=== PATIENT | female | born 1980 | race Hispanic/Latino ===

== ENCOUNTER 2017-04-12 20:51 | Inpatient (IN) | payer MEDICARE, OTHER ==
[~2017-04-12 20:51] MED LIST: ISOVUE-370 76%-LOCM 1 ML ONE
--- NOTE | 2017-04-12 21:18 | RAD ---
CHEST ONE VIEW 04/12/17 HISTORY: Dyspnea. COMPARISON: 04/07/16. FINDINGS: The cardiac silhouette is magnified and enlarged. Pulmonary vasculature is more engorged with reticul onodular interstitial prominence and bilateral perihilar and bibasilar infiltrates. Mediastinum is mi dline with a multilead left subclavian cardiac electronic device. No lobar consolidation or evidence of pneumothorax. IMPRESSION: CHF. POS: [facility]
[2017-04-12 21:34] LABS: #Basophils 0.1 thou/uL (0.0-0.2); #Eosinphils 0.2 thou/uL (0.0-0.7); #Lymphocytes 2.7 thou/uL (1.20-3.40); #Monocytes 0.7 thou/uL (0.11-0.59); #Neutrophils 7.7 thou/uL (1.40-6.50); %Basophils 0.7 % (0.0-1.0); %Eosinophils 2.1 % (0.0-10.0); %Monocytes 6.1 % (0.0-10.0); %Neutrophils 67.1 % (42.0-75.0); Hemoglobin 15.4 g/dL (12.0-16.0); Mean Corpuscular HGB CONC 34.1 g/dL (32.0-36.0); Mean Corpuscular Hemoglobin 33.5 pg (27.0-31.0); Mean Corpuscular Volume 98.1 fl (81.0-99.0); Mean Platelet Volume 8.2 fL (7.4-10.4); Platelet Count 232 thou/uL (130-400); RBC Distribution Width 12.6 % (11.5-14.5); Red Blood Cell (RBC) Count 4.58 mill/uL (4.20-5.40); White Blood Cell (WBC) Count 11.4 thou/uL (4.8-10.8)
[2017-04-12 21:57] LABS: ALT (SGPT) 29 U/L (8-55); AST (SGOT) 21 U/L (5-34); Albumin 4.2 g/dL (3.5-5.0); Alkaline Phosphatase 77 U/L (40-150); Anion Gap 13 mmol/L (10-20); BUN (Urea Nitrogen) 9 mg/dL (7.0-18.7); Bilirubin, Total 0.4 mg/dL (0.2-1.2); Calc. Creatinine Clearance 0 mL/min (70-130); Calcium 9.4 mg/dL (7.8-10.44); Carbon Dioxide 23 mmol/L (22-29); Chloride 105 mmol/L (98-107); Estimated GFR-MDRD 81; Globulin 3.2 g/dL (2.4-3.5); Glucose 108 mg/dL (70-105); Potassium 3.6 mmol/L (3.5-5.1); Protein, Total 7.4 g/dL (6.0-8.3); Sodium 137 mmol/L (136-145)
[2017-04-12 21:59] LABS: CKMB 2.6 ng/mL (0-6.6); Troponin I 0.014 ng/mL (< 0.028)
--- NOTE | 2017-04-12 23:01 | CT ---
CT ARTERIOGRAM CHEST WITH IV CONTRAST AND 3D MIP IMAGING 04/12/17 Performed on an emergency basis at 2246 hours. HISTORY: Chest pain. Dyspnea. COMPARISON: 04/03/16. FINDINGS: There is good contrast opacification of the pulmonary arteries. Contrast has not yet reached the thor acic aorta. There is bovine origin of the great vessels from the aortic arch. Minimal bilateral pleural fluid. Scattered mild ground glass parenchymal opacity is less pronounced t puente on the prior study. No evidence of mediastinal adenopathy. IMPRESSION: 1. No CT evidence of pulmonary embolus. 2. Wide spread mild ground glass opacity may reflect bilateral pneumonitis. It is less pronounce d than on the exam from last year. POS: [facility]
[2017-04-12] MEDS ORDERED: Furosemide 20 MG/2 ML VIAL ONE (23:33)
[2017-04-12] MEDS ORDERED: Nitroglycerin 2% Ointment 1 INCH/1 GM Packet ONE (23:33)
[2017-04-13 03:08] VITALS: BMI 42.0
[2017-04-13] MEDS ORDERED: Dextrose 5% in Water 1,000 ML IV PRN (09:22)
[2017-04-13] MEDS ORDERED: Acetaminophen 325 MG TAB PO PRN (09:22)
[2017-04-13] MEDS ORDERED: Ondansetron ODT 4 MG TAB PO PRN (09:22)
[2017-04-13] MEDS ORDERED: Insulin Regular 300 UNITS/3 ML VIAL SC PRN (09:22)
[2017-04-13] MEDS ORDERED: Enoxaparin Sodium 40 MG/0.4 ML SYRINGE SC SCH ×2 (09:22→09:45)
[2017-04-13] MEDS ORDERED: Dextrose 50% Abboject 50 ML SYRINGE SLOW IVP PRN (09:22)
[2017-04-13] MEDS ORDERED: Famotidine 20 MG TAB PO SCH ×2 (09:22→09:45)
[2017-04-13] MEDS ORDERED: HYDROcodone/Acetaminophen 5/325 mg Tablet PO PRN (09:22)
[2017-04-13 10:12] LABS: #Eosinphils 0.1 thou/uL (0.0-0.7); #Lymphocytes 1.9 thou/uL (1.20-3.40); #Monocytes 0.7 thou/uL (0.11-0.59); #Neutrophils 6.3 thou/uL (1.40-6.50); %Eosinophils 1.5 % (0.0-10.0); %Lymphocytes 20.7 % (21.0-51.0); %Monocytes 7.7 % (0.0-10.0); %Neutrophils 70.1 % (42.0-75.0); Hemoglobin 14.5 g/dL (12.0-16.0); Mean Corpuscular Hemoglobin 33.2 pg (27.0-31.0); Mean Platelet Volume 8.1 fL (7.4-10.4); Platelet Count 209 thou/uL (130-400); RBC Distribution Width 12.6 % (11.5-14.5); Red Blood Cell (RBC) Count 4.38 mill/uL (4.20-5.40); White Blood Cell (WBC) Count 8.9 thou/uL (4.8-10.8)
[2017-04-13] MEDS: Furosemide 40 MG/4 ML VIAL SLOW IVP SCH ×3 (10:14→23:13)
[2017-04-13 10:27] LABS: CKMB 2.2 ng/mL (0-6.6); Troponin I 0.024 ng/mL (< 0.028)
[2017-04-13 10:29] LABS: Anion Gap 11 mmol/L (10-20); BUN (Urea Nitrogen) 9 mg/dL (7.0-18.7); Calc. Creatinine Clearance 180 mL/min (70-130); Calcium 9.5 mg/dL (7.8-10.44); Carbon Dioxide 25 mmol/L (22-29); Chloride 103 mmol/L (98-107); Estimated GFR-MDRD 85; Glucose 120 mg/dL (70-105); Potassium 3.6 mmol/L (3.5-5.1); Sodium 135 mmol/L (136-145)
[2017-04-13] MEDS ORDERED: Guaifenesin DM 100-10/5 ML UDCUP PO PRN (18:15)
[2017-04-13 18:47] LABS: CKMB 2.9 ng/mL (0-6.6); Troponin I 0.031 ng/mL (< 0.028)
[2017-04-13] MEDS: Carvedilol 6.25 MG TAB PO SCH (21:29)
[2017-04-13] MEDS: Famotidine 20 MG TAB PO SCH (21:30)
[2017-04-14 02:05] LABS: Troponin I 0.013 ng/mL (< 0.028)
[2017-04-14 05:48] LABS: #Eosinphils 0.2 thou/uL (0.0-0.7); #Lymphocytes 1.7 thou/uL (1.20-3.40); #Monocytes 0.8 thou/uL (0.11-0.59); %Basophils 0.4 % (0.0-1.0); %Eosinophils 2.9 % (0.0-10.0); %Lymphocytes 25.7 % (21.0-51.0); Hemoglobin 15.1 g/dL (12.0-16.0); Mean Corpuscular Hemoglobin 33.3 pg (27.0-31.0); Mean Corpuscular Volume 97.9 fl (81.0-99.0); Mean Platelet Volume 8.1 fL (7.4-10.4); Platelet Count 188 thou/uL (130-400); RBC Distribution Width 12.5 % (11.5-14.5); Red Blood Cell (RBC) Count 4.52 mill/uL (4.20-5.40); White Blood Cell (WBC) Count 6.7 thou/uL (4.8-10.8)
[2017-04-14 06:01] LABS: Anion Gap 12 mmol/L (10-20); BUN (Urea Nitrogen) 12 mg/dL (7.0-18.7); Calc. Creatinine Clearance 173 mL/min (70-130); Calcium 9.1 mg/dL (7.8-10.44); Carbon Dioxide 27 mmol/L (22-29); Cardiac Risk 5.5 (Less than 4.5); Chloride 101 mmol/L (98-107); Cholesterol 175 mg/dl (< 200 Desired); Estimated GFR-MDRD 83; Glucose 132 mg/dL (70-105); HDL Cholesterol 32 mg/dL (>60 Neg Risk); LDL Cholesterol, Calculated 118 mg/dL; Magnesium 1.9 mg/dL (1.6-2.6); Potassium 3.5 mmol/L (3.5-5.1); Sodium 136 mmol/L (136-145); Triglycerides 123 mg/dL (Less than 150)
[2017-04-14] MEDS ORDERED: Non-Formulary Item 1 EACH (Carvedilol [Coreg] 12.5 MG) PO SCH (09:00)
[2017-04-14] MEDS ORDERED: Enoxaparin Sodium 40 MG/0.4 ML SYRINGE SC SCH (09:00)
[2017-04-14] MEDS ORDERED: Lisinopril 5 MG TAB PO SCH (09:00)
[2017-04-14] MEDS ORDERED: Lisinopril 10 MG TAB PO SCH (09:00)
[2017-04-14] MEDS ORDERED: Furosemide 40 MG TAB PO SCH (09:00)
[2017-04-14] MEDS ORDERED: Carvedilol 6.25 MG TAB PO SCH (09:00)
[2017-04-14] MEDS: Carvedilol 6.25 MG TAB PO SCH (09:31)
[2017-04-14] MEDS: Famotidine 20 MG TAB PO SCH (09:32)
[2017-04-14 15:41] VITALS: TEMP 98.2
--- NOTE | 2017-04-14 15:44 | DIS ---
PRIMARY CARE PHYSICIAN: Morgan. PRIMARY DRAFT ROLLER PICKER: Ld Curran M.D. DATE OF ADMISSION: 04/13/2017 DATE OF DISCHARGE: 04/14/2017 DISCHARGE DIAGNOSES: 1. Acute on chronic systolic congestive heart failure. 2. Cardiomyopathy, last EF prior to this admission was 25% to 30%, now 15% to 20%. 3. Valvular heart disease with mitral regurgitation and tricuspid regurgitation. 4. Obesity. 5. Essential hypertension. 6. Diabetes mellitus type 2. CONSULTATIONS: None. PROCEDURES: A 2D echocardiogram done on 04/14/2017, EF 15% to 20%. HISTORY AND PHYSICAL: Ms. Sam is a pleasant 37-year-old Latin-[place] female, who was admitted her e a year ago and then diagnosed with systolic congestive heart failure. She had an AICD placed by Dr Marshall Phan and has been follow up with her primary care physician. She does not have a cardiologi st. She was in normal state of health until a couple of days ago, showed having increasing shortness of b reath with some PND and orthopnea. She was in the Emergency Department for evaluation where her BNP was noted to be 250. She was given a dose of IV Lasix and we are consulted for admission. HOSPITAL COURSE: The patient was accepted by the rack washer, and has been admitted to the floor. I saw the patient around 0900 and formally admitted her. Serial cardiac biomarkers were ordered, a 2D echocardiogram was ordered, scheduled Lasix was ordered, and the patient was ordered to be part of th e walking program. Echo was canceled by the echo lab and rescheduled for the following day for some reason. Serial card iac biomarkers were unremarkable, and the patient responded well to Lasix diuresis. Her breathing by the end of the day on 04/13/2017 was back to her baseline. Overnight, she had no further problems. Echocardiogram was done this morning, repeat echo report woodward s show her EF has dropping from 25% to 30% down to 15% to 20%. I spoke with Dr. Resendiz, who thought she was safe for discharge with outpatient follow up with Dr. Curran this next week. AICD is curre ntly in place. Interrogation was negative for any dysfunction. Tobacco cessation counseling was initiated with the patient. I spoke with about 20 minutes regarding need to stop smoking. She is only smoking about a quarter of a pack of cigarettes per day, I explai javier to her that the nicotine at any levels is too much for her extremely weak heart. She has voiced understanding and her daughters mentioned that they would make sure she adhered. I did speak with [facility] regarding her condition, and she has been enrolled and will be following up with them on a regular basis. PHYSICAL EXAM: The patient was seen and examined on the day of discharge. Discharge plan disposition was discussed with the patient and both of her daughters [id number] at [facility] bedside. DISCHARGE MEDICATIONS: 1. Lasix 40 mg p.o. daily. 2. Carvedilol 12.5 mg p.o. b.i.d. 3. Lisinopril 10 mg daily. FOLLOWUP APPOINTMENTS: 1. Primary care physician at [facility] within a week. 2. Dr. Curran next week. 3. [facility] next available. DISCHARGE ACTIVITY: Per cardiopulmonary limits. DISCHARGE DIET: Diabetic, heart healthy diet recommended. We recommended keeping her fluids to 1500 mL or less. DISCHARGE CONDITION: Good. DISPOSITION: She can be discharged home in a private vehicle with family.
[2017-04-14 16:48] VITALS: BP 139/93
== END 2017-04-14 17:10 | disposition home or self-care (01) | DRG 292 ==
LOC: ERS 20:51 → 2NO 04-13 01:52
PROVIDERS: ADMIT Family Medicine; ATTEND Family Medicine
DX: I11.0 Hypertensive heart disease with heart failure (principal); Z68.41 Body mass index [BMI] 40.0-44.9, adult; I42.9 Cardiomyopathy, unspecified; I08.1 Rheumatic disorders of both mitral and tricuspid valves; I50.23 Acute on chronic systolic (congestive) heart failure; E66.9 Obesity, unspecified; E11.9 Type 2 diabetes mellitus without complications; Z95.810 Presence of automatic (implantable) cardiac defibrillator; F17.210 Nicotine dependence, cigarettes, uncomplicated
CPT/HCPCS: 36415; 36416; 71045; 71275; 80048; 80053; 80061; 82553; 83605; 83735; 83880; 84484; 85025; 85379; 93005; 93306; 93798; 94640; 96374; A4216; J1650; J1815; J1940; J7620

== ENCOUNTER 2017-09-22 02:40 | Inpatient (IN) | payer MEDICARE, OTHER ==
[2017-09-22 03:25] LABS: #Basophils 0.1 thou/uL (0.0-0.2); #Eosinphils 0.2 thou/uL (0.0-0.7); #Monocytes 0.6 thou/uL (0.11-0.59); #Neutrophils 6.9 thou/uL (1.40-6.50); %Basophils 0.7 % (0.0-1.0); %Eosinophils 1.5 % (0.0-10.0); %Lymphocytes 28.1 % (21.0-51.0); %Monocytes 5.5 % (0.0-10.0); %Neutrophils 64.3 % (42.0-75.0); Mean Corpuscular HGB CONC 35.8 g/dL (32.0-36.0); Mean Corpuscular Hemoglobin 35.1 pg (27.0-31.0); Mean Corpuscular Volume 98.1 fL (78.0-98.0); Mean Platelet Volume 8.4 fL (7.4-10.4); Platelet Count 196 thou/uL (130-400); RBC Distribution Width 12.8 % (11.5-14.5); White Blood Cell (WBC) Count 10.7 thou/uL (4.8-10.8)
[2017-09-22 03:49] LABS: CKMB 4.3 ng/mL (0-6.6); Troponin I Less than 0.010 ng/mL (< 0.028)
[2017-09-22 04:05] LABS: ALT (SGPT) 80 U/L (8-55); AST (SGOT) 98 U/L (5-34); Albumin 3.9 g/dL (3.5-5.0); Alkaline Phosphatase 106 U/L (40-150); Anion Gap 14 mmol/L (10-20); BUN (Urea Nitrogen) 11 mg/dL (7.0-18.7); Bilirubin, Total 0.7 mg/dL (0.2-1.2); Calc. Creatinine Clearance 0 mL/min (70-130); Calcium 9.2 mg/dL (7.8-10.44); Carbon Dioxide 20 mmol/L (22-29); Chloride 108 mmol/L (98-107); Estimated GFR-MDRD 86; Globulin 2.9 g/dL (2.4-3.5); Glucose 165 mg/dL (70-105); Potassium 4.8 mmol/L (3.5-5.1); Protein, Total 6.8 g/dL (6.0-8.3); Sodium 137 mmol/L (136-145)
[2017-09-22] MEDS ORDERED: cefTRIAXone\\ROCEPHIN 2 GM VIAL ONE (05:48)
[2017-09-22] MEDS ORDERED: methylPREDNISolone Sod Succ/PF 125 MG/2 ML VIAL ONE (05:48)
[2017-09-22] MEDS ORDERED: Sodium Chloride 0.9% 100 ML ONE (05:49)
[2017-09-22] MEDS ORDERED: Azithromycin 500 MG VIAL ONE (06:01)
[2017-09-22] MEDS ORDERED: Dextrose 5% in Water 1,000 ML IV PRN (06:26)
[2017-09-22] MEDS ORDERED: Dextrose 50% Abboject 50 ML SYRINGE SLOW IVP PRN (06:26)
[2017-09-22] MEDS ORDERED: HumaLOG 300 UNITS/3 ML VIAL SC PRN (06:26)
[2017-09-22 06:46] LABS: Troponin I 0.015 ng/mL (< 0.028)
--- NOTE | 2017-09-22 07:05 | HP ---
CHIEF COMPLAINT: Shortness of breath, chest pain. HISTORY OF PRESENT ILLNESS: Patient is a 37-year-old female who has a history of a significant cardi omyopathy with left ventricular ejection fraction of 10-15%. She is status post AICD placement in [facility] of this year. The patient reports that she did follow up with Dr. Phan in June and was told that there was a detachment of one of the leads. Patient states that she started having dyspnea on exertion starting about 4:00 the day before admissi on. This persisted and by 10:00 p.m., she was having some discomfort in the middle of her chest. Dar farfan stated she felt like her defibrillator was moving and that scared her enough that she decided to co me to the emergency room to get the chest pain evaluated. When she got to the emergency department, she was noted to be hypoxic with O2 sat in the mid 80s on room air. She was placed on oxygen and sta maria l that her symptoms improved. She had no associated radiation, nausea, vomiting, or lightheadednes s. She has been having some cough and that seems to be worse when she is turning on to one side. Dar farfan has been producing sputum that she describes as ranging from green to clear. REVIEW OF SYSTEMS: Notable for diarrhea over the last week with some associated abdominal cramping. The patient does report that she is having pain in her left lower extremity that seems to start in t he buttock area and extends all the way down the leg. This started when the patient was in [place] 2[place]3 weeks ago. PAST MEDICAL HISTORY: Notable for diabetes mellitus, congestive heart failure with cardiomyopathy wi th global hypokinesis, inferior akinesis and an EF of 10-15%. PAST SURGICAL HISTORY: AICD placement. FAMILY HISTORY: Father had diabetes. Mother of some sort of brain injury. She has brothers an d sisters with hypertension. SOCIAL HISTORY: Patient continues to smoke. She states she is only smoking 2-3 cigarettes per day a nd only smoking half of them. She has no alcohol use, no drug use. She is not . Her Serina pierson, would be her surrogate decision maker and she is FULL CODE. PHYSICAL EXAMINATION: VITAL SIGNS: BP 112/69, pulse 85, respirations 25, O2 saturation 95% on 2 liters. GENERAL APPEARANCE: Age appropriate female in no distress, slightly obese. HEENT: PERRL. No OP lesions. NECK: Supple and symmetric with no lymphadenopathy, JVD, or carotid bruits. HEART: Regular rate and rhythm without murmurs, gallops, or rubs. Left chest AICD is palpable on in place. Incision looks good. LUNGS: Reveal bibasilar rales, worse on the right than the left, otherwise fair air exchange. ABDOMEN: Soft, nontender, nondistended, positive bowel sounds. No masses, no organomegaly. EXTREMITIES: Warm and dry with no edema. Good peripheral pulses. PSYCHIATRIC: The patient has normal affect and normal behavior. LABORATORY AND DIAGNOSTIC DATA: White count 10.7, hemoglobin 14.0, platelets 196,000. D-dimer is 2. 08, chloride 108, CO2 is 20, BUN 11, creatinine 0.75, glucose 165, AST is 98, ALT 80. Troponin less than 0.01. BNP 381.9, albumin 3.9. Chest x-ray appears to reveal right lower lobe pneumonia. CT an giogram of the chest reveals no pulmonary embolus, but there is evidence of pneumonia. There is also some evidence of emphysematous lung disease. IMPRESSION AND PLAN: 1. Pneumonia, primarily affecting the right lower lobe. The patient will remain on Rocephin and hayden thromycin. The patient reports that she has had recurrences of pneumonia in the past. Etiology of t hat is unclear. 2. History of congestive heart failure. AICD is in place, the patient reports that there is a detac hed lead. We will consult Dr. Phan for further assessment of that. 3. Left lower extremity pain with elevated D-dimer. She is negative for pulmonary embolism, but chitra l check lower extremity Dopplers to detect for possible peripheral deep vein thrombosis. It sounds l francesca the patient's problem is primarily sciatica. 4. Diabetes mellitus. Continue with her usual home medicines along with Accu-Cheks and sliding scal e insulin.
[2017-09-22] MEDS ORDERED: Ondansetron HCl/PF 4 MG/2 ML Vial IVP PRN (07:07)
[2017-09-22] MEDS ORDERED: Acetaminophen 325 MG TAB PO PRN (07:07)
[2017-09-22] MEDS ORDERED: Ondansetron ODT 4 MG TAB PO PRN (07:07)
[2017-09-22] MEDS: Azithromycin 500 MG in Sodium Chloride 0.9% 250 ML 250 ML IVPB SCH (07:43)
[2017-09-22 08:01] VITALS: BMI 44.7
--- NOTE | 2017-09-22 08:28 | ULT ---
BILATERAL LOWER EXTREMITY VENOUS DOPPLER ULTRASOUND: Date: 09/22/17 HISTORY: Left lower extremity pain, elevated D-Dimer. TECHNIQUE: Lopez scale ultrasound with color flow and spectral Doppler imaging of the deep venous systems of the lower extremities was performed bilaterally. FINDINGS: There is good flow, compression, and augmentation noted in the common femoral, femoral, deep femoral, popliteal, posterior tibial, and greater saphenous veins on either side. IMPRESSION: No evidence of deep venous thrombosis in either lower extremity. POS: [facility]
--- NOTE | 2017-09-22 08:55 | CT ---
PRELIMINARY REPORT/[facility]/EMERGENTY AFTER-HOURS PROCEDURE CT Angiography Chest With Intravenous Contrast EXAM DATE/TIME: 09/22/2017 4:14 AM CLINICAL HISTORY: 37 years old, female; Signs and symptoms; Shortness of breath; Prior surgery; Patient HX: 37 y/o f pm hx chf, HTN, obesity presents to the ed complaining of SOB that started at 4 pm and has gotten progre ssively worse. She reports it is associated with orthopnea and a cough that is worse when she lies do wn. She reports medication compliance and denies any increase in fluid intake or fevers. She reports that 2 weeks ago she went [place] and developed l leg swelling and pain the morning after her fligh t landed. She reports tingling in her toes. She denies any current le edema. She has an icd in place. TECHNIQUE: Axial computed tomographic angiography images of the chest with intravenous contrast using CT angiogr aphy protocol. MIP reconstructed images were created and reviewed. COMPARISON: No relevant prior studies available. FINDINGS: Pulmonary arteries: Normal. No pulmonary emboli. Aorta: Normal. No aortic aneurysm. No aortic dissection. Lungs: Smooth interlobular septal thickening and peribronchial cuffing compatible with hydrostatic in terstitial pulmonary edema/CHF. Patchy multifocal air space opacity in the right lung compatible with pneumonia. Lungs otherwise clear allowing for expiratory phase imaging and subsegmental atelectasis. Pleural space: Small bilateral pleural effusions. Heart: Cardiomegaly. Cardiac device present. Bones/joints: Unremarkable. No acute fracture. Soft tissues: Unremarkable. Lymph nodes: Unremarkable. No enlarged lymph nodes. Liver: Hepatic steatosis. IMPRESSION: 1. Hydrostatic interstitial pulmonary edema/CHF. 2. Small bilateral pleural effusions. 3. Patchy multifocal air space opacity in the right lung compatible with pneumonia. Thank you for allowing us to participate in the care of your patient. Dictated and Authenticated by: Timothy Jackson MD 09/22/2017 4:53 AM Central Time ([place] & [place]) FINAL REPORT CT PULMONARY ANGIOGRAM WITH IV CONTRAST AND 3D POSTPROCESSING: Date: 09/22/17 FINDINGS/IMPRESSION: I agree with the preliminary report given by Tian. POS: [facility]
--- NOTE | 2017-09-22 08:56 | RAD ---
CHEST 1 VIEW: Date: 09/22/17 HISTORY: Dyspnea. Sepsis. COMPARISON: 04/12/17. FINDINGS: Cardiac silhouette is magnified and enlarged. Pulmonary vasculature is engorged. Mediastinum midline. Mild patchy bibasilar infiltrates. Multilead left subclavian cardiac electronic device is in place. No evidence of pneumothorax. IMPRESSION: Cardiomegaly with pulmonary vascular congestion. Please seen separate report regarding CT arteriogram of chest performed on the same date. POS: [facility]
[2017-09-22] MEDS: Saccharomyces boulardii 250 MG CAP PO SCH ×2 (09:18→20:40)
[2017-09-22] MEDS: Enoxaparin Sodium 40 MG/0.4 ML SYRINGE SC SCH (09:18)
[2017-09-22 09:37] LABS: Troponin I 0.011 ng/mL (< 0.028)
[2017-09-22] MEDS ORDERED: ISOVUE-370 76%-LOCM 1 ML ONE (14:44)
--- NOTE | 2017-09-22 18:03 | PDOC.EVN ---
Event Note - Event Note Event Note: Chart reviewed. Pt seen. Feels better. Will follow.
--- NOTE | 2017-09-22 18:18 | CON ---
DATE OF CONSULTATION: 09/22/2017 ELECTROPHYSIOLOGY CONSULT Trina Bower NP, dictating as scribe for Dr. Brenden Phan. REFERRING PHYSICIAN: Mane Sim M.D. REASON FOR CONSULTATION: AICD malfunction. HISTORY OF PRESENT ILLNESS: Ms. Sam is a 37-year-old patient known to our practice with inclusion o f a biventricular ICD that was placed in March 2016 for chronic systolic heart failure with a mike rely reduced ejection fraction of 10%-15%. She presented to the emergency room for evaluation for a persisting and increasing shortness of breath as well as some midsternal discomfort. She was concern ed that her defibrillator was moving in addition to the shortness of breath, so she went to the ER fo r evaluation. In the emergency room, she was found to be hypoxic and oxygen saturations were in the mid 80s on room air. She has since been admitted for pneumonia and is being treated for this. While in the emergency room, she reported that she felt her defibrillator was not working appropriately an d the device was checked which did reveal was having high thresholds and thus prompting an EP c onsult. Ms. Sam currently is resting comfortably in bed. She reports some continued shortness of b reath as well as cough that induces some pain. She denies any heart racing, palpitations, syncope, n ear syncope, stroke or stroke-like symptoms. She also denies any progressive swelling of the extremi ties or heart failure symptoms other than the progressive shortness of breath. She has not had any p erceived ICD discharges. She has had a productive cough with green sputum. REVIEW OF SYSTEMS: A 12-point review of systems was conducted and is negative except that listed abo ve in the HPI, but also has had some left lower extremity pain starting in the gluteal area and exten ding down the leg. PAST MEDICAL HISTORY: 1. Chronic systolic congestive heart failure with nonischemic cardiomyopathy and severely reduced ej ection fraction, most recently documented at 15%-20% on 04/14/2017. 2. Severe mitral regurgitation, mild tricuspid regurgitation and normal left atrium. 3. Left bundle branch block. PAST SURGICAL HISTORY: 1. Inclusion of a biventricular ICD implanted in 03/2016. 2. [employer] Viva Quad with chronically elevated capture threshold, but functional atrial lead. 3. Obesity. 4. Hypertension. 5. Type 2 diabetes. FAMILY HISTORY: Father with diabetes, mother with brain injury. Siblings with hypertension. SOCIAL HISTORY: Positive for tobacco habituation, 1-3 cigarettes a day. Negative for alcohol or isaiah g use. Lives with her daughter. PHYSICAL EXAMINATION: VITAL SIGNS: Most recent vital signs 98.2, pulse 99, blood pressure 131/67, respirations 16, oxygen is 92% on 1 liter via nasal cannula. GENERAL: Ms. Sam is well groomed and oriented woman, in no apparent distress. She is obese. Her s peech is clear. Affect is appropriate. She is resting comfortably in bed. HEENT: She is normocephalic, atraumatic. Her sclerae are anicteric. EOMs are intact. NECK: Supple without jugular venous distention. Her thyroid is nonpalpable. LUNGS: Auscultation of lungs reveals mild bibasilar rales, greater on the right than the left. Resp irations are even and unlabored with an occasional cough. CARDIOVASCULAR: Heart rate is regularly regular without murmur, rub or gallop. Her ICD is seated at the left infraclavicular fossa without swelling, bruising, erosion or drainage. EXTREMITIES: Warm and dry to touch without clubbing, cyanosis or edema. ABDOMEN: Her abdomen is soft and nontender without palpable masses and positive bowel sounds through out. Hepatojugular reflux is negative. NEUROLOGIC: Grossly intact and nonfocal. Her gait was not assessed. DATABASE: By telemetry, the patient is maintaining sinus rhythm. LABORATORY DATA: WBC 10.7, hematocrit is 39.3, hemoglobin 14, platelet count is 196. Chemistry 137, potassium 4.8, BUN is 11, creatinine 0.75. AST 98, ALT 80. Serial troponins are negative. BNP 381 . Chest x-ray from this morning revealed cardiomegaly with pulmonary vascular congestion. Venous Do ppler of her left lower extremity was performed and there was no DVT found. Device interrogation: Patient has a [employer] Quad [employer] device, battery longevity is greater andra n 5 years. Overall, lead parameters are stable; however, her right atrial lead sensing appropriately , but measuring P waves at 0.3, no arrhythmias are documented and OptiVol fluid index are well below threshold, overall normal function except for the right atrial lead which has progressively declining sensitivity. He is still functioning adequately, but could atrial sensing. IMPRESSION: 1. Pneumonia, being managed by a hospitalist. 2. Chronic systolic heart failure, well compensated. 3. Biventricular ICD in situ with normal operation. No detected arrhythmias and chronic issues with an atrial lead with declining sensitivity, though still maintaining adequate function. RECOMMENDATIONS: 1. Continue treating pneumonia as per the medical team. 2. Regarding her atrial lead function, it is a relatively unchanged since she was last seen in [facility] in June. At this time, with an active pulmonary infection, lead revision is not advisable. We have attempted to schedule lead revision as an outpatient in the past, but has been canceled by the eric nt multiple times. If she remains inpatient and her infectious status is resolved, we would consider lead revision before discharge. Otherwise, this can easily be arranged as an outpatient as well. T his was all discussed with the patient who voices understanding. Thank you for allowing us to participate in the care of this patient. If any other issues arise, ple ase do not hesitate to let us know, but for now, her device is functioning normally and no new issues have been seen.
[2017-09-22] MEDS: Carvedilol 6.25 MG TAB PO SCH (20:45)
[2017-09-22] MEDS: Lisinopril 10 MG TAB PO SCH (20:45)
[2017-09-23] MEDS: Azithromycin 500 MG in Sodium Chloride 0.9% 250 ML 250 ML IVPB SCH (05:13)
[2017-09-23] MEDS ORDERED: cefTRIAXone\\ROCEPHIN 1 GM in Sodium Chloride 0.9% 100 ML IVPB SCH (06:00)
[2017-09-23] MEDS ORDERED: glyBURIDE 2.5 MG TAB PO SCH (08:00)
[2017-09-23] MEDS: Lisinopril 10 MG TAB PO SCH (08:28)
[2017-09-23] MEDS: Saccharomyces boulardii 250 MG CAP PO SCH (08:28)
[2017-09-23] MEDS: Carvedilol 6.25 MG TAB PO SCH (08:29)
[2017-09-23] MEDS: Enoxaparin Sodium 40 MG/0.4 ML SYRINGE SC SCH (08:29)
[2017-09-23] MEDS ORDERED: Furosemide 40 MG TAB PO SCH (09:00)
[2017-09-23] MEDS ORDERED: HumaLOG 300 UNITS/3 ML VIAL SC PRN (09:43)
[2017-09-23] MEDS ORDERED: Insulin Glargine 8 UNITS in Pre-Filled Syringe 1 EACH SC SCH (10:30)
[2017-09-23 11:47] VITALS: BP 111/73; TEMP 98
[2017-09-24] MEDS ORDERED: Insulin Glargine 8 UNITS in Pre-Filled Syringe 1 EACH SC SCH ×2 (09:00→09:43)
--- NOTE | 2017-09-24 19:02 | DIS ---
DATE OF ADMISSION: 09/22/2017 DATE OF DISCHARGE: 09/23/2017 DISCHARGE DIAGNOSES: 1. Shortness of breath. 2. Pneumonia. 3. Heart failure, systolic, compensated. 4. Possible lead malfunctioning. HOSPITAL COURSE: The patient is a very pleasant 37-year-old female [facility]. She was seen by EP for concerns of AICD lead malfunction. Per note s, it was recommended that this lead revision would be considered either as outpatient versus possibl e even inpatient; however, the patient on antibiotics, felt better. She was walked and she was not h ypoxic. At this time, she wanted to go home, so we put her on oral antibiotics and discharge the [facility] ie home. PHYSICAL EXAMINATION: GENERAL: She was walking around without any shortness of breath or any difficulties. VITAL SIGNS: Temperature of 98.6, heart rate 97. She was 93% on room air, blood pressure was 139/88 . GENERAL: She was awake, alert, oriented. She does not appear in distress. CARDIOVASCULAR: S1, S2 present. No murmurs, rubs or gallops. ABDOMEN: Soft, nontender. Bowel sounds are present x2. LUNGS: Clear to auscultation. No rhonchi or wheezes noted. EXTREMITIES: No edema. Pedal pulses are present x2. DISCHARGE MEDICATIONS: As the following, glyburide 2.5 mg q.a.m., lisinopril 10 mg b.i.d., Lasix 40 mg daily, Coreg 12.5 b.i.d., aspirin 81 mg daily, and she was sent home with 100 mg p.o. b.i.d. Again, the patient stated that she felt better. She wanted to be discharged. We did walk her. She was not hypoxic per nursing notes and therefore the patient was discharged home.
== END 2017-09-23 13:49 | disposition home or self-care (01) | DRG 194 ==
LOC: ERS 02:40 → 2NO 06:14
PROVIDERS: ADMIT Internal Medicine; ATTEND Internal Medicine
DX: J18.9 Pneumonia, unspecified organism (principal); I42.9 Cardiomyopathy, unspecified; T82.190A Other mechanical complication of cardiac electrode, initial encounter; I50.22 Chronic systolic (congestive) heart failure; Z68.41 Body mass index [BMI] 40.0-44.9, adult; E11.9 Type 2 diabetes mellitus without complications; F17.210 Nicotine dependence, cigarettes, uncomplicated; I08.1 Rheumatic disorders of both mitral and tricuspid valves; I44.7 Left bundle-branch block, unspecified; I11.0 Hypertensive heart disease with heart failure; E66.9 Obesity, unspecified; Z95.810 Presence of automatic (implantable) cardiac defibrillator
CPT/HCPCS: 36415; 36416; 71045; 71275; 80053; 82553; 83036; 83605; 83880; 84484; 85025; 85379; 87040; 93005; 93970; A4216; J0456; J0696; J1650; J2930; J7050

== ENCOUNTER 2017-09-23 20:02 | Inpatient (IN) | payer MEDICARE, OTHER ==
--- NOTE | 2017-09-23 21:03 | RAD ---
PORTABLE CHEST ONE VIEW: 09/23/17 at 8:51 p.m. HISTORY: Shortness of breath. FINDINGS/IMPRESSION: No significant interval change is seen since the previous day's exam of 3:02 a.m. POS: [facility]
[2017-09-23 21:06] LABS: #Basophils 0.1 thou/uL (0.0-0.2); #Eosinphils 0.1 thou/uL (0.0-0.7); #Lymphocytes 2.8 thou/uL (1.20-3.40); #Monocytes 0.7 thou/uL (0.11-0.59); #Neutrophils 8.2 thou/uL (1.40-6.50); %Eosinophils 0.7 % (0.0-10.0); %Lymphocytes 23.2 % (21.0-51.0); %Monocytes 5.5 % (0.0-10.0); %Neutrophils 69.6 % (42.0-75.0); Hemoglobin 13.6 g/dL (12.0-16.0); Mean Corpuscular HGB CONC 34.3 g/dL (32.0-36.0); Mean Corpuscular Volume 99.1 fL (78.0-98.0); Mean Platelet Volume 8.3 fL (7.4-10.4); Platelet Count 197 thou/uL (130-400); RBC Distribution Width 12.9 % (11.5-14.5); White Blood Cell (WBC) Count 11.8 thou/uL (4.8-10.8)
[2017-09-23] MEDS ORDERED: Furosemide 40 MG/4 ML VIAL ONE (21:22)
[2017-09-23] MEDS ORDERED: Nitroglycerin 2% Ointment 1 INCH/1 GM Packet ONE (21:22)
[2017-09-23 21:29] LABS: ALT (SGPT) 124 U/L (8-55); AST (SGOT) 106 U/L (5-34); Albumin 3.9 g/dL (3.5-5.0); Alkaline Phosphatase 90 U/L (40-150); Anion Gap 13 mmol/L (10-20); BUN (Urea Nitrogen) 13 mg/dL (7.0-18.7); Bilirubin, Total 0.8 mg/dL (0.2-1.2); CK (CPK) 159 U/L (29-168); Calc. Creatinine Clearance 0 mL/min (70-130); Calcium 8.9 mg/dL (7.8-10.44); Carbon Dioxide 22 mmol/L (22-29); Chloride 107 mmol/L (98-107); Estimated GFR-MDRD 73; Globulin 2.7 g/dL (2.4-3.5); Glucose 203 mg/dL (70-105); Magnesium 1.9 mg/dL (1.6-2.6); Potassium 3.9 mmol/L (3.5-5.1); Protein, Total 6.6 g/dL (6.0-8.3); Sodium 138 mmol/L (136-145)
[2017-09-23 21:32] LABS: CKMB 4.1 ng/mL (0-6.6); Troponin I Less than 0.010 ng/mL (< 0.028)
[2017-09-23] MEDS ORDERED: traMADol HCl 50 MG TAB PO PRN (22:07)
[2017-09-23] MEDS ORDERED: Mag-Al 1200 mg/1200 mg/30 ML UDCUP PO PRN (22:07)
[2017-09-23] MEDS ORDERED: Bisacodyl 5 MG TAB PO PRN ×2 (22:07)
[2017-09-23] MEDS ORDERED: Senokot 8.6 MG TAB PO PRN ×2 (22:07)
[2017-09-23] MEDS ORDERED: cloNIDine 0.1 MG TAB PO PRN (22:07)
[2017-09-23] MEDS ORDERED: hydrALAZINE 20 MG/ML VIAL SLOW IVP PRN (22:07)
[2017-09-23] MEDS ORDERED: Benzonatate 100 MG CAP PO PRN (22:07)
[2017-09-23] MEDS ORDERED: Acetaminophen 325 MG TAB PO PRN (22:07)
[2017-09-23] MEDS ORDERED: Diabetic Tussin 200 MG/10 ML UDCUP PO PRN (22:07)
[2017-09-23] MEDS ORDERED: Calcium Carbonate 500 MG ChewTAB PO PRN (22:07)
[2017-09-23] MEDS ORDERED: Loratadine 10 MG TAB PO PRN (22:07)
[2017-09-23] MEDS ORDERED: Lorazepam 1 MG TAB PO PRN (22:07)
[2017-09-23] MEDS ORDERED: HYDROcodone/Acetaminophen 5/325 mg Tablet PO PRN (22:07)
[2017-09-23] MEDS ORDERED: Ondansetron HCl/PF 4 MG/2 ML Vial IVP PRN ×2 (22:07)
[2017-09-23] MEDS ORDERED: Nitroglycerin 0.4 MG TAB (25 Tab Bottle) SL PRN (22:07)
[2017-09-23] MEDS ORDERED: cefTRIAXone\\ROCEPHIN 2 GM in Sodium Chloride 0.9% 100 ML IVPB SCH (22:15)
[2017-09-23] MEDS ORDERED: HumaLOG 300 UNITS/3 ML VIAL SC PRN (22:17)
[2017-09-23] MEDS ORDERED: Dextrose 50% Abboject 50 ML SYRINGE SLOW IVP PRN (22:17)
[2017-09-23] MEDS ORDERED: Dextrose 5% in Water 1,000 ML IV PRN (22:17)
[2017-09-23 22:26] LABS: BHCG - Serum Negative (NEGATIVE); Pregs Control Background? CLEAR/WHITE (CLR/WHITE); Pregs Control Bar Appear? YES (CONTROL BAR)
[2017-09-23] MEDS ORDERED: Acetaminophen 500 MG TAB ONE (22:39)
[2017-09-23 22:59] LABS: Bilirubin Negative (Negative); Blood, Urine Large (Negative); Clarity CLOUDY (Clear); Glucose, Urine (Dipstick) Negative (Negative); Leukocyte Trace (Negative); Nitrite Negative (Negative); Protein, Urine (Dipstick) Negative (Neg-Trace); Specific Gravity, Urine 1.007 (1.002-1.036); Urobilinogen 0.2 mg/dL (0.2-1.0)
[2017-09-23 23:01] LABS: Bacteria/HPF None Seen HPF (None Seen); Hyaline Casts/LPF 0-3 HYALINE CAST LPF (0-3 Hyaline); Pathc Cast-AUWi Flag 0.29 (0-2.49); Squamous Epithelial 0-3 HPF (0-3)
[2017-09-23 23:53] VITALS: BMI 43.1
[2017-09-24 00:43] LABS: Troponin I 0.028 ng/mL (< 0.028)
--- NOTE | 2017-09-24 03:55 | HP ---
DATE OF ADMISSION: 09/23/2017 Please note that the patient was seen prior to midnight. PRIMARY CARE PHYSICIAN: Dr. Sixto Siegel. CHIEF COMPLAINT: Worsening shortness of breath. HISTORY OF PRESENT ILLNESS: Ms. Sam is a 37-year-old female with history of nonischemic cardiomyopathy with EF of 10% to 15%, status post AICD in place as well as history of diabetes, who presented to the ER with above-mentioned complaint. History is mainly obtained by the patient herself. Electronical medical records have been reviewed. The patient was admitted here just 1 day ago. She was admitted on lens cementer 09/22/2017 and admitted and discharged on 09/23/2017 of the midday. At this admission, she was treated for pneumonia and was discharged on doxycycline. She was also seen by electrophysiology, Dr. Phan on 09/22/2017 for possible AICD malfunction. On 09/22/2017, the patient reported some feeling of defibrillator moving and discomfort in the chest along with shortness of breath and she felt that her defibrillator was not working properly. Dr. Phan saw the patient and recommended lead revision at a later date, as the patient was also diagnosed with pneumonia and was on antibiotics. She was discharged earlier today after she was stabilized and reportedly her oxygen saturation was adequate. Please note that no progress note or discharge summary as yet available for me to review the exact hospital course during that hospitalization. The patient reports that she went home only for few hours, but never felt any better. She was significantly short of breath and continued to have the same sensation of chest discomfort anteriorly and in her left upper shoulder and left lateral chest, which she describes like it as a pressure sensation and pain. She returned back to the emergency room and was found to be significantly hypoxic with oxygen saturation in the high 80s on room air. She was hypertensive with blood pressure 178/112 with a pulse of 108. Her 12-lead EKG showed atrial-sensed ventricular paced rhythm with a QTC interval of 546. Please note that the patient has undergone a CT angio of the thorax as well as lower extremity ultrasound only yesterday to rule out DVT and PE and both were negative for the same. I discussed the various possibilities with the ER physician, Dr. Krueger. The patient also reported that she has been having high fever of 103 at home. She also has history of severe mitral regurgitation and was found to have worsening congestive heart failure with an elevated BNP today. After discussion, we decided that at this time we cannot rule out infective endocarditis versus lead infection versus acute CHF and worsening of pneumonia. She was given IV Lasix as well as empiric IV antibiotic to cover for endocarditis and is now being admitted for further evaluation and care. Because of the hypoxia, the patient has been started on BiPAP and currently feeling somewhat better. She was also given 325 mg of aspirin and 2-inch of nitroglycerin paste for hypertension in the emergency room. PAST MEDICAL HISTORY: 1. Nonischemic cardiomyopathy. The patient reports that she was told she has viral myocarditis in [place]. 2. Congestive systolic heart failure with EF of 10% to 15%, status post AICD placement in the past. 3. Diabetes mellitus. PAST SURGICAL HISTORY: AICD placement. FAMILY HISTORY: Father has diabetes. Mother of some sort of brain injury. Multiple siblings with hypertension. SOCIAL HISTORY: She is still smoking 2 to 3 cigarettes per day. No history of drug or alcohol abuse. Her daughter Serina is the surrogate decision maker. CODE STATUS: FULL CODE discussed with the patient. ALLERGIES: No known medication allergies. MEDICATIONS: Micronase 2.5 mg daily, Coreg 12.5 mg p.o. b.i.d., lisinopril 10 mg p.o. b.i.d., Lasix 40 mg daily, and aspirin 81 mg daily. REVIEW OF SYSTEMS: A 12-point review of systems is done. It is negative except for those mentioned in the history and physical. LABORATORY EXAMINATION: CBC shows WBCs at 11.8 without any left shift. D- dimer elevated to 1.74, but it is improved from the D-dimer checked yesterday at 2.08. Serum chemistries showed blood sugar 203. Liver enzymes: AST 106, ALT 124. Cardiac enzymes, troponin less than 0.010 then 0.028. CK-MB normal. BNP elevated to 425. Serum test negative. Urinalysis showed large blood, trace leukocyte esterase, and some wbc's. Chest x-ray by my review shows mild pulmonary vascular congestion and cardiomegaly, right multifocal pneumonia is seen as mentioned in the CT angio on 09/22/2017. PHYSICAL EXAMINATION: VITAL SIGNS: Most recent vital signs, temperature 99.7, T-max of 100.5 in the emergency room, pulse rate 107, respirations 26, saturating 95% on 2 liters nasal cannula, blood pressure 139/88. GENERAL: Mild respiratory distress. She is getting easily winded with conversation. She appears ill. Family is at bedside. Awake, alert, oriented x3. HEENT: BiPAP mask is on at the time of my evaluation. Head is normocephalic, atraumatic. Pupils equal, reactive to light and accommodation. Extraocular movement intact. NECK: Supple without any lymphadenopathy, JVD, or bruit. CHEST: Chest examination shows decreased breath sound at bases without any significant wheezes. Faint bibasilar crackles are also heard bilaterally. HEART: She is tachycardic with regular rhythm without any appreciable murmurs. ABDOMEN: Obese, soft, nontender, nondistended with positive bowel sounds. EXTREMITIES: Free of any cyanosis, clubbing, or edema, no calf tenderness. SKIN: Free of any rashes or bruises. I feel warm and dry to touch. NEUROLOGIC: Nonfocal. PSYCHIATRIC: Normal affect. IMPRESSION AND PLAN: 1. Acute hypoxic respiratory failure. Multiple possibilities at this time. Biggest differential diagnosis is acute on chronic systolic congestive heart failure exacerbation with persistent poorly treated pneumonia as well as possibility of infective endocarditis or lead infection. At this time, she will be treated with IV diuretics, BiPAP as tolerated with weaned to nasal cannula as tolerated as well as broad-spectrum IV antibiotics. We will consult Cardiology and Pulmonary Medicine in the morning and obtain a new transthoracic echocardiogram. She may or may not need a transesophageal echocardiogram to rule out lead infection or infective endocarditis. Strict I's and O's and fluid restriction will be instituted as well. 2. Sepsis secondary to pneumonia, but intracardiac infection including lead infection or [place] valve endocarditis cannot be ruled out. Broad spectrum antibiotics as above. IV fluids will not be instituted given the fact that the patient is currently in acute congestive heart failure. 3. Acute systolic congestive heart failure. The patient is status post AICD placement. We will continue with IV Lasix for now and consult Heart Failure Clinic as well. We will consult Cardiology and obtain a transthoracic echocardiogram. We will continue with her aspirin and beta-mónica at this time. We will also continue her lisinopril at this time. I am not sure why the patient is not on Aldactone. 4. Rule out infective endocarditis/lead infection. Start with transthoracic echocardiogram and broad-spectrum IV antibiotics. We will defer the decision for possible AMEE to Cardiology for now. 5. History of ischemic cardiomyopathy and chronic congestive heart failure. Continue home medications as above. 6. Morbid obesity. Dietary education and lifestyle modification advised. 7. Hypertension, currently controlled. We will resume Coreg and lisinopril and add p.r.n. antihypertensives. 8. Left bundle branch block pattern seems to be old. Continue home medications and obtain a new echocardiogram. 9. Deep venous thrombosis and gastrointestinal prophylaxis. 10. Code status: FULL CODE. DISPOSITION: Ms. Sam is currently being admitted to the hospital with acute hypoxic respiratory failure and sepsis. Further management will depend upon her clinical course, but estimated length of stay at this time is 2-3 midnights. She is currently being admitted to IMCU. Total time spent in providing critical care for this patient is 45 mins. SYED
[2017-09-24 04:54] LABS: #Basophils 0.1 thou/uL (0.0-0.2); #Eosinphils 0.1 thou/uL (0.0-0.7); #Lymphocytes 2.9 thou/uL (1.20-3.40); #Monocytes 0.7 thou/uL (0.11-0.59); #Neutrophils 7.5 thou/uL (1.40-6.50); %Basophils 0.6 % (0.0-1.0); %Eosinophils 0.9 % (0.0-10.0); %Lymphocytes 25.8 % (21.0-51.0); %Monocytes 6.5 % (0.0-10.0); %Neutrophils 66.2 % (42.0-75.0); Mean Corpuscular HGB CONC 34.8 g/dL (32.0-36.0); Mean Corpuscular Hemoglobin 34.2 pg (27.0-31.0); Mean Corpuscular Volume 98.3 fL (78.0-98.0); Mean Platelet Volume 8.7 fL (7.4-10.4); Platelet Count 184 thou/uL (130-400); RBC Distribution Width 12.8 % (11.5-14.5); Red Blood Cell (RBC) Count 3.81 mill/uL (4.20-5.40); White Blood Cell (WBC) Count 11.4 thou/uL (4.8-10.8)
[2017-09-24 05:19] LABS: Anion Gap 11 mmol/L (10-20); BUN (Urea Nitrogen) 10 mg/dL (7.0-18.7); Calc. Creatinine Clearance 192 mL/min (70-130); Calcium 8.3 mg/dL (7.8-10.44); Carbon Dioxide 24 mmol/L (22-29); Chloride 106 mmol/L (98-107); Estimated GFR-MDRD 89; Glucose 172 mg/dL (70-105); Potassium 3.5 mmol/L (3.5-5.1); Sodium 137 mmol/L (136-145)
[2017-09-24 05:24] LABS: Troponin I 0.013 ng/mL (< 0.028)
[2017-09-24] MEDS: Furosemide 40 MG/4 ML VIAL SLOW IVP SCH ×2 (06:15→13:04)
[2017-09-24] MEDS: Enoxaparin Sodium 40 MG/0.4 ML SYRINGE SC SCH (08:42)
[2017-09-24] MEDS: Famotidine 20 MG TAB PO SCH ×2 (08:43→20:08)
[2017-09-24] MEDS: Carvedilol 6.25 MG TAB PO SCH ×2 (08:43→20:07)
[2017-09-24] MEDS: glyBURIDE 2.5 MG TAB PO SCH (08:43)
[2017-09-24] MEDS: Lisinopril 10 MG TAB PO SCH ×2 (08:43→20:06)
[2017-09-24] MEDS ORDERED: cefTRIAXone\\ROCEPHIN 2 GM in Sodium Chloride 0.9% 100 ML IVPB SCH (09:00)
[2017-09-24] MEDS: HumaLOG 300 UNITS/3 ML VIAL SC PRN ×2 (12:58→17:33)
--- NOTE | 2017-09-24 13:13 | CON ---
DATE OF CONSULTATION: 09/24/2017 CARDIOLOGY CONSULTATION REASON FOR CONSULTATION: Heart failure. PRIMARY COLLEGE AND CAREER COUNSELOR: Ld Curran M.D. HISTORY OF PRESENT ILLNESS: Ms. Sam is a pleasant 37-year-old female who comes to the [facility] for shortness of breath. She has a history of nonischemic cardiomyopathy and AICD is in place. She was admitted just 1 or 2 days ago with heart failure and was diagnosed with pneumonia. She was diuresed and sent home on antibiotics. She went home and she felt a slight improvement in symptoms, but then slowly started to regain some of the fluid back and had to come back in for shortness of [place] ath. She was diuresed overnight and currently she is feeling much better, but still requiring oxygen supplementation and still feeling some shortness of breath. She denies any chest pain, tightness or pressure. PAST MEDICAL HISTORY: 1. Hypertension. 2. Nonischemic cardiomyopathy. 3. Underlying left bundle branch block. OUTPATIENT MEDICATIONS: Include, 1. Doxycycline given recently. 2. Glyburide. 3. Carvedilol 12.5 mg b.i.d. 4. Lisinopril 10 mg b.i.d. 5. Lasix 40 mg a day. 6. Aspirin 81 a day. ALLERGIES: No known drug allergies. SOCIAL HISTORY: Occasional alcohol use. Smokes about 5 cigarettes a day. No drug use. FAMILY HISTORY: Noncontributory. REVIEW OF SYSTEMS: A 12-point review of systems was done and is all negative unless stated in the hi story of present illness. PHYSICAL EXAMINATION: VITAL SIGNS: Temperature 98.4, pulse 92, respiratory rate 24, satting 97% on 3 liters, blood pressur e 137/106. GENERAL: Awake, alert, oriented x3, in no distress. HEENT: Normocephalic, atraumatic. NECK: Supple. LUNGS: Clear. CARDIOVASCULAR: S1, S2. No S3, S4. No murmurs. ABDOMEN: Soft with positive bowel sounds. EXTREMITIES: 1+ edema. SKIN: Warm and dry. LABORATORY DATA: Reviewed. White count of 11.4, hemoglobin of 13, hematocrit of 37, platelet count of 184,000. D-dimer was a little bit high. Chemistries were reviewed, mostly normal except for gluc ose of 172. BNP was 425. Troponin is negative x3. UA was unremarkable except for a large amount of blood, trace leukocyte esterase, 4-6 white cells. EKG was reviewed. ASSESSMENT AND PLAN: 1. Acute on chronic systolic heart failure. 2. Pneumonia. 3. AICD malfunction requiring lead revision. PLAN: 1. Agree with continued diuresis. Most likely, her decompensated state is related to her pneumonia. Continue IV antibiotics per primary team. Currently on Lasix 40 IV twice a day. I would continue this for the next 24 hours and reevaluate. 2. Continue other heart failure medications. 3. She will need AICD lead revision as an outpatient in the future. 4. Echocardiogram pending. Thank you for letting us participate in the care of your patient. Dr. Curran, her primary cardiolo gist will follow up in the morning.
--- NOTE | 2017-09-24 13:43 | CON ---
DATE OF CONSULTATION: 09/24/2017 CONSULTING PHYSICIAN: Dr. Hernández. REASON FOR CONSULTATION: Pneumonia. Following consultation encompassed 70 minutes time; of that, greater than 50% was spent with the patient and/or in the patient's unit in the hospital. HISTORY OF PRESENT ILLNESS: This is a 37-year-old female who came to the emergency room last night with increasing shortness of breath. She had just been admitted to the hospital yesterday and sent home mid day. She had been told she had a right mid lung field pneumonia and had been started on doxycycline. When she got home, she noticed that she was more short of breath when she was walking around. She came back to the ER. The ER wanted her evaluated emergently because they thought she might have endocarditis. When I am evaluating her this morning, she looks very calm. She is having no acute shortness of breath and says her breathing is 8/10 as far as being good. She has a known nonischemic cardiomyopathy with ejection fraction of about 10-15 % and was diagnosed back in 2011. She says she is compliant with her medications. She has had some subjective fever. She has had a dry cough. PAST MEDICAL HISTORY: 1. Nonischemic cardiomyopathy that was thought secondary to viral myocarditis 2. Chronic systolic heart failure with ejective fraction 10%. 3. Diabetes mellitus. 4. No pulmonary history. PAST SURGICAL HISTORY: AICD placement. FAMILY MEDICAL HISTORY: Remarkable for diabetes mellitus. SOCIAL HISTORY: Apparently smokes 2-3 cigarettes per day. Does not consume alcohol or use illicit drugs. MEDICATIONS: Micronase, Coreg, lisinopril, Lasix, aspirin. ALLERGIES: None. REVIEW OF SYSTEMS: A 12-point review of systems is otherwise negative except as mentioned above. PHYSICAL EXAMINATION: VITAL SIGNS: Temperature 97.4 with a T-max of 99.7, pulse 118, blood pressure 146/104, O2 sat 98% on 3 liters. GENERAL: She is awake and alert. She is in no overt distress. HEENT: Unremarkable. NECK: No adenopathy or JVD, no bruits. LUNGS: Clear without wheezing or rhonchi. CARDIAC: S1, S2, slightly tachycardic without murmur. ABDOMEN: Soft, nontender, nondistended. EXTREMITIES: No clubbing, cyanosis, or edema. LABORATORY DATA: Sodium 137, potassium 3.5, chloride 106, CO2 24, BUN 10, creatinine 0.7, glucose 172. BNP 425. White blood cell count 11.4, hematocrit 37.5, platelet count 184. I have reviewed her chest x-ray and her CT of the chest. They were done yesterday. Chest x-ray shows cardiomegaly and some chronic interstitial changes. The CT may show right mid field infiltrate; however, the film has a lot of motion artifact and is very difficult to tell if anything acute is going on not. ASSESSMENT: 1. The patient had acute hypoxic respiratory failure last night. This is probably secondary to aggravation of cardiomyopathy from an underlying febrile illness. I cannot tell for sure if she has overt pneumonia. I do not think that we are dealing with endocarditis unless something comes back from the cultures. 2. Chronic systolic heart failure. 3. Cardiomyopathy. RECOMMENDATIONS: I would recommend watching her in the hospital for a couple of days. She can be transferred out to the telemetry unit. She does not look like she is in imminent need of any type of mechanical ventilation. I have reviewed her orders. I agree with the ceftriaxone, vancomycin can probably be reserved and discontinued if her cultures are negative. Further care per Cardiology and Internal Medicine. SYED
--- NOTE | 2017-09-24 20:17 | PDOC.PN ---
- Subjective Encounter Start Date: 09/24/17 Encounter Start Time: 12:30 Subjective: pt up in bed no complains - Objective Vital Signs & Weight: Vital Signs (12 hours) Temp Pulse Resp BP BP Pulse Ox 09/24/17 20:07 111/72 09/24/17 20:06 111/72 09/24/17 15:45 98.4 F 86 28 H 112/72 97 09/24/17 11:54 98.4 F 92 24 H 137/106 H 97 09/24/17 08:43 146/104 H Weight Weight 259 lb 6.4 oz I&O: 09/23/17 09/24/17 09/25/17 06:59 06:59 06:59 Intake Total 840 1464 Output Total 1200 4800 Balance -360 -0399 Result Diagrams: 09/24/17 03:43 09/24/17 03:43 Additional Labs: Accuchecks 09/24/17 09/24/17 09/24/17 16:47 10:54 06:14 POC Glucose 220 H 174 H 145 H Phys Exam - Physical Examination Neck: no nodes, no JVD, supple, full ROM mild crackles to bases Cardiovascular: RRR, no significant murmur, no rub, gallop, irregular Dx/Plan (1) Acute on chronic systolic (congestive) heart failure Code(s): I50.23 - ACUTE ON CHRONIC SYSTOLIC (CONGESTIVE) HEART FAILURE Status : Acute (2) Community acquired bacterial pneumonia Code(s): J15.9 - UNSPECIFIED BACTERIAL PNEUMONIA Status: Acute (3) Hypertension Code(s): I10 - ESSENTIAL (PRIMARY) HYPERTENSION Status: Chronic (4) Morbid obesity with BMI of 40.0-44.9, adult Code(s): E66.01 - MORBID (SEVERE) OBESITY DUE TO EXCESS CALORIES; Z68.41 - BODY MASS INDEX (BMI) 40.0-44.9, ADULT Status: Chronic (5) Diabetes Code(s): E11.9 - TYPE 2 DIABETES MELLITUS WITHOUT COMPLICATIONS Status: Acute - Plan will continue abx. May discontinue vanco -: continue iv lasix * . Review of Systems - Review of Systems Respiratory: negative: Cough, Dry, Shortness of Breath, Hemoptysis, SOB with Excertion, Pleuritic Pain, Sputum, Wheezing Cardiovascular: negative: chest pain, palpitations, orthopnea, paroxysmal nocturnal dyspnea, edema, light headedness, other Gastrointestinal: negative: Nausea, Vomiting, Abdominal Pain, Diarrhea, Constipation, Melena, Hematochezia, Other Genitourinary: negative: Dysuria, Frequency, Incontinence, Hematuria, Retention , Other - Medications/Allergies Allergies/Adverse Reactions: Allergies Allergy/AdvReac Type Severity Reaction Status Date / Time No Known Drug Allergies Allergy Verified 04/13/17 03:07 Medications: Current Medications Acetaminophen (Tylenol) 650 mg PO Q4H PRN PRN Reason: Headache/Fever or Pain Hydrocodone Bitart/Acetaminophen (Buras 5/325) 1 tab PO Q4H PRN PRN Reason: Moderate Pain (4-6) Al Hydroxide/Mg Hydroxide (Maalox) 30 ml PO Q6H PRN PRN Reason: Heartburn or Indigestion Aspirin (Aspirin Chewable) 81 mg PO DAILY [facility] Last Admin: 09/24/17 08:44 Dose: 81 mg Benzonatate (Tessalon) 100 mg PO Q4H PRN PRN Reason: Cough Bisacodyl (Dulcolax) 10 mg PO DAILYPRN PRN PRN Reason: Constipation Calcium Carbonate (Tums) 1,000 mg PO Q4H PRN PRN Reason: Heartburn or Indigestion Carvedilol (Coreg) 12.5 mg PO BID [facility] Last Admin: 09/24/17 20:07 Dose: 12.5 mg Clonidine (Catapres) 0.1 mg PO Q4H PRN PRN Reason: Systolic BP > 160 Dextrose/Water (Dextrose 50%) 25 gm SLOW IVP PRN PRN PRN Reason: Hypoglycemia Enoxaparin Sodium (Lovenox) 40 mg SC 0900 [facility] Last Admin: 09/24/17 08:42 Dose: 40 mg Famotidine (Pepcid) 20 mg PO BID [facility] Last Admin: 09/24/17 20:08 Dose: 20 mg Furosemide (Lasix) 40 mg SLOW IVP 0600,1400 [facility] Last Admin: 09/24/17 13:04 Dose: 40 mg Glucagon (Glucagon) 1 mg IM PRN PRN PRN Reason: Hypoglycemia Glyburide (Micronase) 2.5 mg PO QAM[facility] Last Admin: 09/24/17 08:43 Dose: 2.5 mg Guaifenesin (Robitussin Sf) 200 mg PO Q4H PRN PRN Reason: Cough Hydralazine HCl (Apresoline) 10 mg SLOW IVP Q4H PRN PRN Reason: Systolic BP > 170 Dextrose/Water (D5w) 1,000 mls @ 0 mls/hr IV .Q0M PRN PRN Reason: Hypoglycemia Ceftriaxone Sodium 2 gm/ (Sodium Chloride) 100 mls @ 200 mls/hr IVPB Q24HR JANIS Vancomycin HCl 2 gm/ Sodium (Chloride) 500 mls @ 250 mls/hr IVPB 1200,2359 [facility] Last Admin: 09/24/17 12:20 Dose: 500 mls Insulin Human Lispro (Humalog) 0 units SC .MODERATE SLIDING SC PRN PRN Reason: Moderate Correctional Scale Last Admin: 09/24/17 17:33 Dose: 4 unit Insulin Human Lispro (Humalog) 0 units SC .BEDTIME SLIDING SC PRN PRN Reason: Bedtime Correctional Scale Lisinopril (Zestril) 10 mg PO BID [facility] Last Admin: 09/24/17 20:06 Dose: 10 mg Loratadine (Claritin) 10 mg PO DAILYPRN PRN PRN Reason: Sinus Symptoms Lorazepam (Ativan) 1 mg PO Q4H PRN PRN Reason: Anxiety/Agitation Miscellaneous Medication (Pharmacy To Dose) 0 each IVPB PRN PRN PRN Reason: [facility] Pharmacy to Dose Nitroglycerin (Nitrostat) 0.4 mg SL Q5MIN PRN PRN Reason: Chest Pain Ondansetron HCl (Zofran) 4 mg IVP Q6H PRN PRN Reason: Nausea/Vomiting Senna (Senokot) 2 tab PO HSPRN PRN PRN Reason: Constipation Tramadol HCl (Ultram) 50 mg PO Q4H PRN PRN Reason: Moderate Pain (4-6)
[2017-09-24] MEDS: cefTRIAXone\\ROCEPHIN 2 GM in Sodium Chloride 0.9% 100 ML IVPB SCH (22:36)
[2017-09-25] MEDS: Furosemide 40 MG/4 ML VIAL SLOW IVP SCH ×2 (05:40→14:36)
--- NOTE | 2017-09-25 08:50 | PRG ---
DATE OF SERVICE: 09/25/2017 The patient is feeling better than yesterday. PHYSICAL EXAMINATION: VITAL SIGNS: Temperature 97.2, pulse 78, respirations 18, O2 sat 93% on 2 liters, blood pressure 118 /75. HEENT: Unremarkable. NECK: Without adenopathy or JVD. LUNGS: Clear anteriorly. CARDIOVASCULAR: S1 and S2 regular. ABDOMEN: Soft. EXTREMITIES: No edema. LABORATORY DATA: No new labs were done today. ASSESSMENT: 1. Pneumonia. 2. Severe cardiomyopathy, which is nonischemic. PLAN: I would keep her here for a couple days on IV antibiotics as any stress will lead to further d ecompensation of heart failure. Current antibiotic choice seems appropriate.
[2017-09-25] MEDS: Enoxaparin Sodium 40 MG/0.4 ML SYRINGE SC SCH (10:24)
[2017-09-25] MEDS: glyBURIDE 2.5 MG TAB PO SCH (10:24)
[2017-09-25] MEDS: Lisinopril 10 MG TAB PO SCH ×2 (10:25→21:36)
[2017-09-25] MEDS: Carvedilol 6.25 MG TAB PO SCH ×2 (10:26→21:35)
[2017-09-25] MEDS: Famotidine 20 MG TAB PO SCH ×2 (10:26→21:36)
[2017-09-25] MEDS: HumaLOG 300 UNITS/3 ML VIAL SC PRN (12:32)
[2017-09-25] MEDS: Sodium Chloride 0.9% 10 ML ONE (14:36)
--- NOTE | 2017-09-25 15:22 | PDOC.PN ---
- Subjective Encounter Start Date: 09/25/17 Encounter Start Time: 11:10 Subjective: pt up in chair no complains - Objective Vital Signs & Weight: Vital Signs (12 hours) Temp Pulse Resp BP BP Pulse Ox 09/25/17 12:00 97.6 F 79 18 117/63 93 L 09/25/17 10:26 118/75 09/25/17 10:25 118/75 09/25/17 08:00 97.2 F L 78 18 93 L 09/25/17 07:46 97.2 F L 78 18 118/75 93 L 09/25/17 03:45 93 L 09/25/17 03:40 98.4 F 84 20 124/81 89 L Weight Weight 257 lb 6.4 oz I&O: 09/24/17 09/25/17 09/26/17 06:59 06:59 06:59 Intake Total 840 2424 Output Total 1200 5350 Balance -612 -2827 Result Diagrams: 09/24/17 03:43 09/24/17 03:43 Additional Labs: Accuchecks 09/25/17 09/25/17 09/24/17 10:46 05:44 21:38 POC Glucose 180 H 139 H 154 H 09/24/17 16:47 POC Glucose 220 H Phys Exam - Physical Examination HEENT: PERRLA, moist MMs, sclera anicteric, TM's clear, oral pharynx no lesions , 2+ tonsils Neck: no nodes, no JVD, supple, full ROM Respiratory: no wheezing, no rales, no rhonchi, wheezing present, clear to auscultation bilateral Cardiovascular: RRR, no significant murmur, no rub, gallop, irregular Gastrointestinal: soft, non-tender, no distention, positive bowel sounds Deviation from normal: does have a boil on her right side of her abdomen Dx/Plan (1) Acute on chronic systolic (congestive) heart failure Code(s): I50.23 - ACUTE ON CHRONIC SYSTOLIC (CONGESTIVE) HEART FAILURE Status : Acute (2) Community acquired bacterial pneumonia Code(s): J15.9 - UNSPECIFIED BACTERIAL PNEUMONIA Status: Acute (3) Hypertension Code(s): I10 - ESSENTIAL (PRIMARY) HYPERTENSION Status: Chronic (4) Morbid obesity with BMI of 40.0-44.9, adult Code(s): E66.01 - MORBID (SEVERE) OBESITY DUE TO EXCESS CALORIES; Z68.41 - BODY MASS INDEX (BMI) 40.0-44.9, ADULT Status: Chronic (5) Diabetes Code(s): E11.9 - TYPE 2 DIABETES MELLITUS WITHOUT COMPLICATIONS Status: Acute - Plan continue current abx -: continue lasix bid for systolic heart failure * . Review of Systems - Review of Systems Respiratory: negative: Cough, Dry, Shortness of Breath, Hemoptysis, SOB with Excertion, Pleuritic Pain, Sputum, Wheezing Cardiovascular: negative: chest pain, palpitations, orthopnea, paroxysmal nocturnal dyspnea, edema, light headedness, other Gastrointestinal: negative: Nausea, Vomiting, Abdominal Pain, Diarrhea, Constipation, Melena, Hematochezia, Other - Medications/Allergies Allergies/Adverse Reactions: Allergies Allergy/AdvReac Type Severity Reaction Status Date / Time No Known Drug Allergies Allergy Verified 04/13/17 03:07 Medications: Current Medications Acetaminophen (Tylenol) 650 mg PO Q4H PRN PRN Reason: Headache/Fever or Pain Hydrocodone Bitart/Acetaminophen ([place] 5/325) 1 tab PO Q4H PRN PRN Reason: Moderate Pain (4-6) Al Hydroxide/Mg Hydroxide (Maalox) 30 ml PO Q6H PRN PRN Reason: Heartburn or Indigestion Aspirin (Aspirin Chewable) 81 mg PO DAILY [facility] Last Admin: 09/25/17 10:25 Dose: 81 mg Benzonatate (Tessalon) 100 mg PO Q4H PRN PRN Reason: Cough Bisacodyl (Dulcolax) 10 mg PO DAILYPRN PRN PRN Reason: Constipation Calcium Carbonate (Tums) 1,000 mg PO Q4H PRN PRN Reason: Heartburn or Indigestion Carvedilol (Coreg) 12.5 mg PO BID [facility] Last Admin: 09/25/17 10:26 Dose: 12.5 mg Clonidine (Catapres) 0.1 mg PO Q4H PRN PRN Reason: Systolic BP > 160 Dextrose/Water (Dextrose 50%) 25 gm SLOW IVP PRN PRN PRN Reason: Hypoglycemia Enoxaparin Sodium (Lovenox) 40 mg SC 0900 [facility] Last Admin: 09/25/17 10:24 Dose: 40 mg Famotidine (Pepcid) 20 mg PO BID [facility] Last Admin: 09/25/17 10:26 Dose: 20 mg Furosemide (Lasix) 40 mg SLOW IVP 0600,1400 [facility] Last Admin: 09/25/17 14:36 Dose: 40 mg Glucagon (Glucagon) 1 mg IM PRN PRN PRN Reason: Hypoglycemia Glyburide (Micronase) 2.5 mg PO QAM-WM [facility] Last Admin: 09/25/17 10:24 Dose: 2.5 mg Guaifenesin (Robitussin Sf) 200 mg PO Q4H PRN PRN Reason: Cough Hydralazine HCl (Apresoline) 10 mg SLOW IVP Q4H PRN PRN Reason: Systolic BP > 170 Dextrose/Water (D5w) 1,000 mls @ 0 mls/hr IV .Q0M PRN PRN Reason: Hypoglycemia Ceftriaxone Sodium 2 gm/ (Sodium Chloride) 100 mls @ 200 mls/hr IVPB Q24HR [facility] Last Admin: 09/24/17 22:36 Dose: 100 mls Vancomycin HCl 2 gm/ Sodium (Chloride) 500 mls @ 250 mls/hr IVPB 1200,2359 [facility] Last Admin: 09/25/17 12:26 Dose: 500 mls Insulin Human Lispro (Humalog) 0 units SC .MODERATE SLIDING SC PRN PRN Reason: Moderate Correctional Scale Last Admin: 09/25/17 12:32 Dose: 2 unit Insulin Human Lispro (Humalog) 0 units SC .BEDTIME SLIDING SC PRN PRN Reason: Bedtime Correctional Scale Lisinopril (Zestril) 10 mg PO BID [facility] Last Admin: 09/25/17 10:25 Dose: 10 mg Loratadine (Claritin) 10 mg PO DAILYPRN PRN PRN Reason: Sinus Symptoms Lorazepam (Ativan) 1 mg PO Q4H PRN PRN Reason: Anxiety/Agitation Miscellaneous Medication (Pharmacy To Dose) 0 each IVPB PRN PRN PRN Reason: [facility] Pharmacy to Dose Nitroglycerin (Nitrostat) 0.4 mg SL Q5MIN PRN PRN Reason: Chest Pain Ondansetron HCl (Zofran) 4 mg IVP Q6H PRN PRN Reason: Nausea/Vomiting Senna (Senokot) 2 tab PO HSPRN PRN PRN Reason: Constipation Tramadol HCl (Ultram) 50 mg PO Q4H PRN PRN Reason: Moderate Pain (4-6)
[2017-09-25] MEDS: cefTRIAXone\\ROCEPHIN 2 GM in Sodium Chloride 0.9% 100 ML IVPB SCH (21:35)
[2017-09-25 23:47] LABS: Vancomycin, Trough 16.9 ug/mL
[2017-09-26] MEDS: Furosemide 40 MG/4 ML VIAL SLOW IVP SCH ×2 (05:42→15:14)
[2017-09-26 06:05] LABS: Anion Gap 11 mmol/L (10-20); BUN (Urea Nitrogen) 16 mg/dL (7.0-18.7); Calc. Creatinine Clearance 170 mL/min (70-130); Calcium 9.4 mg/dL (7.8-10.44); Carbon Dioxide 26 mmol/L (22-29); Chloride 105 mmol/L (98-107); Estimated GFR-MDRD 78; Glucose 162 mg/dL (70-105); Potassium 3.9 mmol/L (3.5-5.1); Sodium 138 mmol/L (136-145)
[2017-09-26 09:01] LABS: Anion Gap 13 mmol/L (10-20); BUN (Urea Nitrogen) 14 mg/dL (7.0-18.7); Calc. Creatinine Clearance 176 mL/min (70-130); Calcium 9.5 mg/dL (7.8-10.44); Carbon Dioxide 28 mmol/L (22-29); Chloride 103 mmol/L (98-107); Estimated GFR-MDRD 80; Glucose 149 mg/dL (70-105); Magnesium 2.1 mg/dL (1.6-2.6); Potassium 3.5 mmol/L (3.5-5.1); Sodium 140 mmol/L (136-145)
[2017-09-26] MEDS: Carvedilol 6.25 MG TAB PO SCH ×2 (09:02→21:00)
[2017-09-26] MEDS: Famotidine 20 MG TAB PO SCH ×2 (09:02→21:00)
[2017-09-26] MEDS: Lisinopril 10 MG TAB PO SCH ×2 (09:02→21:00)
[2017-09-26] MEDS: Enoxaparin Sodium 40 MG/0.4 ML SYRINGE SC SCH (09:03)
[2017-09-26] MEDS: glyBURIDE 2.5 MG TAB PO SCH (09:03)
--- NOTE | 2017-09-26 09:07 | PRG ---
DATE OF SERVICE: 09/26/2017 The patient is doing well and has no complaints. PHYSICAL EXAMINATION: VITAL SIGNS: Temperature 97.9, pulse 76, respirations 18, O2 sat 92% on 2 liters, blood pressure 130 /57. HEENT: Unremarkable. NECK: No JVD. CHEST: Clear without wheezing or rhonchi. CARDIAC: S1 and S2 regular. ABDOMEN: Soft. EXTREMITIES: No edema. LABORATORY DATA: Sodium 138, potassium 3.9, chloride 105, CO2 26, BUN 16, creatinine 0.8, glucose 16 2. ASSESSMENT: 1. Decompensated systolic congestive heart failure due to pneumonia. 2. I do not see any evidence of endocarditis. RECOMMENDATION: From a pulmonary standpoint, she seems stable for discharge to home as long as her h eart failure is felt to be under good control. I would treat her with Omnicef 600 mg daily and give her a total of 10 days treatment between what she got in the hospital and home. No further pulmonary recommendations at this time.
[2017-09-26] MEDS: HumaLOG 300 UNITS/3 ML VIAL SC PRN ×2 (11:28→17:58)
[2017-09-26] MEDS: Sodium Chloride 0.9% 10 ML ONE ×2 (12:42→15:14)
--- NOTE | 2017-09-26 13:29 | PQF ---
CLINICAL DOCUMENTATION IMPROVEMENT CLARIFICATION FORM: ICD-10 Updated PLEASE DO AN ADDENDUM TO THE PROGRESS NOTE WITH ANY DOCUMENTATION UPDATES OR ADDITIONS AND CARRY THROUGH TO DC SUMMARY. THANK YOU. DATE: 09/26 ATTN: RAVI OTT Please exercise your independent, professional judgment in responding to the clarification form. Clinical indicators are provided on the bottom of this form for your review. Please check appropriate box(s) to clarify if the following diagnosis has been ruled in or ruled out: SEPSIS [ ] Ruled in diagnosis [ ] Continue to treat [ ] Resolved [ ] Ruled out diagnosis [ ] Other diagnosis [x ] Unable to determine For continuity of documentation, please document condition throughout progress notes and discharge summary. Thank You. CLINICAL INDICATORS - SIGNS / SYMPTOMS / LABS ER PRESENTATION 09/23: PRESENTS FOR WORSENING SOB, JUST DISCHARGED EARLIER IN THE DAY FOR PNEUMONIA. T: 100.5 HR: 115 RR: 38 PLACED ON BIPAP WBC: 11.8 ER PHYSICIAN DOCUMENTATION OF DIFFERENTIAL DIAGNOSES 09/23: WORSENING SEPSIS ATTENDING H&P DOCUMENTATION 09/23: HX OF PRESENT ILLNESS: ...THE PATIENT ALSO REPORTED THAT SHE HAS BEEN HAVING HIGH FEVER OF 103 AT HOME. IMPRESSION & PLAN: 2) SEPSIS 2/2 PNEUMONIA, BUT INTRACARDIAC INFX INCLUDING LEAD INFX OR BU[place] VALVE ENDOCARDITIS CANNOT BE R/O NO FURTHER MENTION OF SEPSIS TO DATE RISK FACTOR: COMMUNITY ACQUIRED PNEUMONIA ACUTE HYPOXIC RESPIRATORY FAILURE (ON BIPAP, WEANED TO NC) TREATMENTS: IMCU & TELEMETRY MONITORING IV ANTIBIOTICS (ROCEPHIN & VANCOMYCIN 09/23 - PRESENT) PULMONOLOGY & CARDIOLOGY CONSULTS THANK YOU! Komal (This form is maintained as a part of the permanent medical record) 2014 [employer]. All Rights Reserved Komal Bonilla RN, BSN [email or web address] Office: [phone] [facility]
[2017-09-26] MEDS: cefTRIAXone\\ROCEPHIN 2 GM in Sodium Chloride 0.9% 100 ML IVPB SCH (22:01)
[2017-09-27] MEDS: Furosemide 40 MG/4 ML VIAL SLOW IVP SCH ×2 (05:43→15:41)
[2017-09-27] MEDS: Carvedilol 6.25 MG TAB PO SCH (08:03)
[2017-09-27] MEDS: glyBURIDE 2.5 MG TAB PO SCH (08:04)
[2017-09-27] MEDS: Famotidine 20 MG TAB PO SCH (08:04)
[2017-09-27] MEDS: Lisinopril 10 MG TAB PO SCH (08:05)
[2017-09-27] MEDS: Enoxaparin Sodium 40 MG/0.4 ML SYRINGE SC SCH (08:07)
--- NOTE | 2017-09-27 09:06 | PRG ---
DATE OF SERVICE: 09/27/2017 Ms. Sam is doing very well and wants to go home. She slept without oxygen last night and had no dif ficulty. PHYSICAL EXAMINATION: VITAL SIGNS: Temperature is 97.6, pulse 89, blood pressure 108/59, o2 sats 93% on room air. HEENT: Unremarkable. NECK: No JVD. CHEST: Clear without wheezing. CARDIAC: S1, S2 regular, without murmur. ABDOMEN: Soft, nontender. EXTREMITIES: No edema. ASSESSMENT: 1. Pneumonia, better. 2. Nonischemic cardiomyopathy. PLAN: She is stable to go home. Once again, I would treat her with Omnicef 600 mg for a total of 10 days treatment between hospital and home. She will need follow up with her primary care doctor in a bout 3 weeks.
[2017-09-27 11:41] LABS: Vancomycin, Trough 18.9 ug/mL
[2017-09-27 13:34] VITALS: BP 110/62; TEMP 98.1
--- NOTE | 2017-09-27 21:32 | DIS ---
DATE OF ADMISSION: 09/24/2017 DATE OF DISCHARGE: 09/27/2017 DISCHARGE DIAGNOSES: 1. Pneumonia. 2. Acute on chronic systolic heart failure, nonischemic. 3. Hypertension. 4. Diabetes. HOSPITAL COURSE: Patient is a 37-year-old female who initially was admitted on 09/24/2017 for worsen ing shortness of breath. The patient was sent home a few hours prior to that, who came back again wi th shortness of breath. The patient at this time was put on broad spectrum antibiotics and Cardiolog y and Pulmonology was consulted. Patient continued to have IV diuresis with IV. She tolerated prett y well. She was also on IV antibiotics. Patient then was able to walk without any issues with oxyge n saturations. Pulmonology and Cardiology have okayed for patient to go home today. PHYSICAL EXAMINATION: VITAL SIGNS: Temperature 98.1, pulse of 87, blood pressure 108/59, 18, 93% room air. GENERAL: She is awake, alert, oriented. She does not appear in distress. CARDIOVASCULAR: S1, S2 present. No murmurs, rubs or gallops. ABDOMEN: Soft, nontender. Bowel sounds are present x2. EXTREMITIES: No edema. DISCHARGE MEDICATIONS: 1. Glyburide 2.5 q.a.m. 2. Carvedilol 12.5 b.i.d. 3. Lasix 40 mg daily 4. Aspirin 81 mg daily. 5. Zestril 10 mg b.i.d. 6. Omnicef 600 mg p.o. daily. DISCHARGE INSTRUCTIONS: Again, she will follow up with PCP and also she will follow up with Cardiolo gy.
[2017-09-28] MEDS ORDERED: Cefdinir 300 MG CAP PO SCH (09:00)
== END 2017-09-27 17:20 | disposition home or self-care (01) | DRG 291 ==
LOC: ERS 20:02 → IMCU/EMU 23:20 → 2NO 09-24 22:25
PROVIDERS: ADMIT Internal Medicine; ATTEND Internal Medicine
DX: I11.0 Hypertensive heart disease with heart failure (principal); J15.9 Unspecified bacterial pneumonia; J96.01 Acute respiratory failure with hypoxia; Z68.41 Body mass index [BMI] 40.0-44.9, adult; T82.119A Breakdown (mechanical) of unspecified cardiac electronic device, initial encounter; I50.23 Acute on chronic systolic (congestive) heart failure; I42.9 Cardiomyopathy, unspecified; Z95.810 Presence of automatic (implantable) cardiac defibrillator; E11.9 Type 2 diabetes mellitus without complications; F17.210 Nicotine dependence, cigarettes, uncomplicated; E66.01 Morbid (severe) obesity due to excess calories; I44.7 Left bundle-branch block, unspecified
CPT/HCPCS: 36415; 36416; 71045; 80048; 80053; 80202; 81003; 81015; 82553; 83735; 83880; 84484; 84703; 85025; 85379; 87040; 87086; 93005; 93306; 93798; 94660; 96365; 96375; A4216; J0696; J1650; J1940; J3370; J7050

== ENCOUNTER 2017-10-09 12:07 | Outpatient (CLI) | payer MEDICARE | END 2017-10-09 12:08 | disposition home or self-care (01) | LOC: BICRAD 12:07 | PROVIDERS: ATTEND Internal Medicine | DX: J18.9 Pneumonia, unspecified organism (principal); I51.7 Cardiomegaly | CPT/HCPCS: 71046 ==

== ENCOUNTER 2018-10-24 23:22 | Observation (INO) | payer MEDICARE ==
[2018-10-25 00:06] LABS: #Basophils 0.1 thou/uL (0.0-0.2); #Eosinphils 0.3 thou/uL (0.0-0.7); #Lymphocytes 2.7 thou/uL (1.20-3.40); #Monocytes 0.6 thou/uL (0.11-0.59); #Neutrophils 4.7 thou/uL (1.40-6.50); %Basophils 1.2 % (0.0-1.0); %Eosinophils 3.4 % (0.0-10.0); %Lymphocytes 31.7 % (21.0-51.0); %Monocytes 7.5 % (0.0-10.0); %Neutrophils 56.2 % (42.0-75.0); Hemoglobin 14.9 g/dL (12.0-16.0); Mean Corpuscular HGB CONC 34.3 g/dL (32.0-36.0); Mean Corpuscular Hemoglobin 33.2 pg (27.0-31.0); Mean Corpuscular Volume 96.9 fL (78.0-98.0); Mean Platelet Volume 9.3 fL (7.4-10.4); Platelet Count 190 thou/uL (130-400); RBC Distribution Width 12.4 % (11.5-14.5); Red Blood Cell (RBC) Count 4.49 mill/uL (4.20-5.40); White Blood Cell (WBC) Count 8.4 thou/uL (4.8-10.8)
[2018-10-25 00:33] LABS: ALT (SGPT) 125 U/L (8-55); AST (SGOT) 91 U/L (5-34); Albumin 3.9 g/dL (3.5-5.0); Alkaline Phosphatase 271 U/L (40-150); Anion Gap 10 mmol/L (10-20); BUN (Urea Nitrogen) 10 mg/dL (7.0-18.7); Bilirubin, Total 0.5 mg/dL (0.2-1.2); Calc. Creatinine Clearance 0 mL/min (70-130); Carbon Dioxide 27 mmol/L (22-29); Chloride 102 mmol/L (98-107); Estimated GFR-MDRD 69; Globulin 2.8 g/dL (2.4-3.5); Glucose 241 mg/dL (70-105); Potassium 3.5 mmol/L (3.5-5.1); Protein, Total 6.7 g/dL (6.0-8.3); Sodium 135 mmol/L (136-145)
[2018-10-25] MEDS ORDERED: Aspirin Chewable 81 MG TAB ONE (00:39)
[2018-10-25 03:22] VITALS: BMI 42.7
[2018-10-25] MEDS ORDERED: Dextrose 50% Abboject 50 ML SYRINGE IVP PRN (06:23)
[2018-10-25] MEDS ORDERED: Dextrose 5% in Water 1,000 ML IV PRN (06:23)
[2018-10-25] MEDS ORDERED: HumaLOG 300 UNITS/3 ML VIAL SC PRN ×2 (06:23)
--- NOTE | 2018-10-25 07:32 | CT ---
PRELIMINARY REPORT/[facility]/AFTER HOURS PROCEDURE EXAM: CT Head Without Contrast EXAM DATE/TIME: 10/25/2018 12:16 AM CLINICAL HISTORY: 38 years old, female; Pain; Patient HX: Er 8. 38 yo female presents to the ED with a cc of headache a nd decreased left sided strength. She states this started 2 days ago and was associated with a headache TECHNIQUE: Imaging protocol: Computed tomography of the head without contrast. COMPARISON: No relevant prior studies available. FINDINGS: Brain: Exam is degraded by motion artifact. Brain volume is normal. There is no midline shift or mass effect. No acute intracranial hemorrhage, mas or acute territorial infarct identified. Ventricles: No ventriculomegaly. Bones/joints: Unremarkable. No acute fracture. Sinuses: Visualized sinuses are unremarkable. No fluid levels. Mastoid air cells: Visualized mastoid air cells are well aerated. Soft tissues: Unremarkable. IMPRESSION: No acute intracranial abnormality. Thank you for allowing us to participate in the care of your patient. Dictated and Authenticated by: Maria Guadalupe Holt MD 10/25/2018 12:35 AM Central Time ([place] & [place]) FINAL REPORT CT BRAIN WITHOUT CONTRAST: HISTORY: Headache. COMPARISON: None. FINDINGS: No acute hemorrhage or infarct. No midline shift or mass effect. Ventricular size and extra-axial C SF spaces are normal. IMPRESSION: No acute intracranial abnormality. CODE QA Transcribed Date/Time: 10/25/2018 8:58 AM
[2018-10-25] MEDS ORDERED: Aspirin 81 mg Enteric Coated Tablet PO SCH (09:00)
[2018-10-25] MEDS ORDERED: Enoxaparin Sodium 40 MG/0.4 ML SYRINGE SC SCH (09:00)
--- NOTE | 2018-10-25 14:48 | ULT ---
CAROTID ARTERIAL DOPPLER ULTRASOUND: DATE: 10/25/18 COMPARISON: None. HISTORY: Stroke. TECHNIQUE: Multiplanar Lopez scale sonographic imaging of the arterial structures of the neck obtained with color flow and spectral analysis. FINDINGS: Antegrade blood flow and normal arterial waveforms are noted within the carotid and vertebral system bilaterally. There is mild plaque noted within the proximal left ICA and the distal right CCA. VESSEL PSV (cm/sec) Right CCA 74 Right ICA 65 Right ECA 64 Left CCA 65 Left ICA 71 Left ECA 60 ICA/CCA ratio is 0.9 on the right and 1.1 on the left. IMPRESSION: No hemodynamically significant stenosis on the basis of sonographic velocity criteria. POS: [facility]
[2018-10-25 15:31] VITALS: BP 114/81; TEMP 97.7
[2018-10-25 17:25] LABS: ALT (SGPT) 129 U/L (8-55); AST (SGOT) 79 U/L (5-34); Alkaline Phosphatase 263 U/L (40-150); Bilirubin, Direct 0.3 mg/dL (0.1-0.3); Bilirubin, Total 0.7 mg/dL (0.2-1.2); Protein, Total 7.1 g/dL (6.0-8.3)
[2018-10-25] MEDS ORDERED: Atorvastatin Calcium 40 MG TAB PO SCH (21:00)
[2018-10-25] MEDS ORDERED: Carvedilol 25 MG TAB PO SCH (21:00)
[2018-10-26] MEDS ORDERED: Aspirin Chewable 81 MG TAB PO SCH (09:00)
--- NOTE | 2018-10-27 04:02 | SS ---
DATE OF ADMISSION: 10/25/2018 DATE OF DISCHARGE: 10/25/2018 HISTORY OF PRESENT ILLNESS: The patient is a 38-year-old female with history of nonischemic cardiomyopathy, obesity, hypertension, diabetes, elevated liver enzymes, who presented to the hospital with complaints of headache and left-sided weakness. The patient stated that her left-sided weakness has been kind of going on for the past couple days. Initially, she had some tingling in her left upper extremity and then she has felt her left upper extremity heavy. She had some heaviness in her left lower extremity. She then came into the ER for further evaluation. At this time, she did undergo a brain CT which indicated it was unremarkable. We were unable to do an MRI brain given her AICD, which was not compatible with the MRI machine. We also did carotid Dopplers and her Dopplers were essentially normal. No hemodynamically significant stenosis was noted. The patient has already been on aspirin. We will continue that. She also recently had an echocardiogram, which indicated her EF had improved to 20 to 25% from her last 10% to 15%. The patient was noted during this hospital stay to have some elevated LFTs and because of that, she has not been started on the statin. Upon reviewing her records, her previous records in 2011 indicated some hepatic steatosis. I have advised her to follow up with her primary in regard to her liver enzymes followup. I will not start her on a statin due to that. HOME MEDICATIONS: 1. Coreg 25 b.i.d. 2. Lasix 40 mg daily. 3. Entresto one p.o. b.i.d. 4. Aspirin, I have told her to take 325 daily. 5. Glyburide 2.5 daily. 6. Metformin 500 mg q.a.m. I have also advised her to come into the hospital if her symptoms reoccur and not to delay it in the future. PHYSICAL EXAMINATION: VITAL SIGNS: Temperature 97.7, 69, 16, 95% on room air, 114/81. GENERAL: She is awake, alert, and oriented x3. Does not appear in distress. CV: S1, S2 present. No murmurs, rubs, or gallops. ABDOMEN: Soft and nontender. Bowel sounds are present x2. EXTREMITIES: No edema. Pedal pulses are present x2. She will be discharged home. She is able to ambulate without any issues. She will follow up with her primary in regard to her elevated LFTs. Job ID: [id number]
--- NOTE | 2018-10-27 15:08 | EKG ---
Test Reason : Blood Pressure : / mmHG Vent. Rate : 085 BPM Atrial Rate : 340 BPM P-R Int : 000 ms QRS Dur : 144 ms QT Int : 438 ms P-R-T Axes : 020 077 -35 degrees QTc Int : 521 ms Electronic ventricular pacemaker Confirmed by BRANDEN THURMAN DO ([id number]), telegraph editor ALEYDA SIMS ([id number]) on 10/27/2018 3:08:11 PM Referred By: Confirmed By:BRANDEN THURMAN DO
== END 2018-10-25 18:18 | disposition home or self-care (01) ==
LOC: ERS 23:22 → 2SE 10-25 01:15
PROVIDERS: ADMIT Internal Medicine; ATTEND Internal Medicine
DX: R51 Headache (principal); R53.1 Weakness; E11.9 Type 2 diabetes mellitus without complications; I42.9 Cardiomyopathy, unspecified; I11.0 Hypertensive heart disease with heart failure; I50.20 Unspecified systolic (congestive) heart failure; F17.210 Nicotine dependence, cigarettes, uncomplicated; E66.9 Obesity, unspecified; Z68.41 Body mass index [BMI] 40.0-44.9, adult; Z79.82 Long term (current) use of aspirin; Z79.84 Long term (current) use of oral hypoglycemic drugs; Z79.899 Other long term (current) drug therapy; Z95.810 Presence of automatic (implantable) cardiac defibrillator
CPT/HCPCS: 70450; 80053; 80076; 82962; 83880; 85025; 93005; 93880; 96372; 97110; 97139 ×3; 99285; G0378 ×2; 36415; 36416; J1650

== ENCOUNTER 2020-03-03 13:05 | Outpatient (CLI) | payer MEDICARE ==
--- NOTE | 2020-03-03 13:57 | MMO ---
Bilateral MAMMO Bilat Screen [facility]. CLINICAL HISTORY: Patient is 39 years old and is seen for screening. The patient has no family history of breast cancer. The patient has no personal history of cancer. VIEWS: The views performed were: bilateral craniocaudal with tomosynthesis and bilateral mediolateral oblique with tomosynthesis. This study has been interpreted with the assistance of computer-aided detection. MAMMOGRAM FINDINGS: The breasts are almost entirely fat. There are stable benign appearing calcifications seen in both breasts. There are no suspicious masses, suspicious calcifications, or new areas of architectural distortion. IMPRESSION: THERE IS NO MAMMOGRAPHIC EVIDENCE OF MALIGNANCY. A ROUTINE FOLLOW-UP MAMMOGRAM IN 1 YEAR IS RECOMMENDED. THE RESULTS OF THIS EXAM WERE SENT TO THE PATIENT. ACR BI-RADS Category 2 - Benign finding MAMMOGRAPHY NOTE: 1. A negative mammogram report should not delay a biopsy if a dominant of clinically suspicious mass is present. 2. Approximately 10% to 15% of breast cancers are not detected by mammography. 3. Adenosis and dense breasts may obscure an underlying neoplasm. Reported by: ALLAN SANDOVAL MD Electonically Signed: [id number]
== END 2020-03-03 13:06 | disposition home or self-care (01) ==
LOC: BICMAMMO 13:05
PROVIDERS: ATTEND Nurse Practitioner Women's Health
DX: Z12.31 Encounter for screening mammogram for malignant neoplasm of breast (principal)
CPT/HCPCS: 77063; 77067

== ENCOUNTER 2020-05-27 20:42 | Emergency (ER) | payer MEDICARE ==
[2020-05-27] MEDS ORDERED: Acetaminophen 500 MG TAB ONE (22:11)
[2020-05-27] MEDS ORDERED: Lidocaine 1% PF 5 ML VIAL ONE (23:02)
[2020-05-28] MEDS ORDERED: Boostrix 0.5 ML (Tdap) VIAL ONE (00:48)
== END 2020-05-28 01:07 | disposition home or self-care (01) ==
LOC: ERS 20:42
DX: L02.31 Cutaneous abscess of buttock (principal); E11.9 Type 2 diabetes mellitus without complications; I11.0 Hypertensive heart disease with heart failure; I50.9 Heart failure, unspecified; E66.9 Obesity, unspecified; F17.210 Nicotine dependence, cigarettes, uncomplicated
CPT/HCPCS: 10060; 90471; 90715

== ENCOUNTER 2020-09-25 14:01 | Emergency (ER) | payer MEDICARE ==
[~2020-09-25 14:01] MED LIST changes: -ISOVUE-370 76%-LOCM 1 ML ONE; +Iopamidol-370 76% 500 ML 1 ML ONE
[2020-09-25 14:30] LABS: #Basophils 0.1 thou/uL (0.0-0.2); #Eosinphils 0.2 thou/uL (0.0-0.7); #Lymphocytes 2.9 thou/uL (1.20-3.40); #Monocytes 0.4 thou/uL (0.11-0.59); #Neutrophils 5.6 thou/uL (1.40-6.50); %Basophils 0.7 % (0.0-1.0); %Lymphocytes 31.3 % (21.0-51.0); %Monocytes 4.7 % (0.0-10.0); %Neutrophils 61.4 % (42.0-75.0); Hemoglobin 14.8 g/dL (12.0-16.0); Mean Corpuscular HGB CONC 35.2 g/dL (32.0-36.0); Mean Corpuscular Hemoglobin 34.9 pg (27.0-31.0); Mean Corpuscular Volume 99.2 fL (78.0-98.0); Mean Platelet Volume 9.1 fL (7.4-10.4); Platelet Count 222 thou/uL (130-400); RBC Distribution Width 12.2 % (11.5-14.5); Red Blood Cell (RBC) Count 4.24 mill/uL (4.20-5.40); White Blood Cell (WBC) Count 9.1 thou/uL (4.8-10.8)
[2020-09-25 14:52] LABS: ALT (SGPT) 207 U/L (8-55); AST (SGOT) 159 U/L (5-34); Albumin 3.9 g/dL (3.5-5.0); Alkaline Phosphatase 227 U/L (40-110); Anion Gap 9 mmol/L (10-20); BUN (Urea Nitrogen) 16 mg/dL (7.0-18.7); Bilirubin, Total 0.8 mg/dL (0.2-1.2); CK (CPK) 165 U/L (29-168); Calc. Creatinine Clearance 0 mL/min (70-130); Calcium 9.3 mg/dL (7.8-10.44); Carbon Dioxide 24 mmol/L (22-29); Chloride 105 mmol/L (98-107); Globulin 3.5 g/dL (2.4-3.5); Glucose 222 mg/dL (70-105); Lipase 41 U/L (8-78); Potassium 4.1 mmol/L (3.5-5.1); Protein, Total 7.4 g/dL (6.0-8.3); Sodium 134 mmol/L (136-145)
== END 2020-09-25 21:01 | disposition home or self-care (01) ==
LOC: ERS 14:01
DX: R07.89 Other chest pain (principal); K80.20 Calculus of gallbladder without cholecystitis without obstruction; I11.0 Hypertensive heart disease with heart failure; I50.9 Heart failure, unspecified; E11.9 Type 2 diabetes mellitus without complications; Z87.891 Personal history of nicotine dependence; Z79.899 Other long term (current) drug therapy
CPT/HCPCS: 36415; 71045; 71275; 76705; 80053; 82550; 83690; 83880; 84484; 85025; 85379; 93005; Q9967

== ENCOUNTER 2020-10-22 15:06 | Emergency (ER) | payer MEDICARE ==
[2020-10-22 15:51] LABS: #Basophils 0.1 thou/uL (0.0-0.2); #Eosinphils 0.1 thou/uL (0.0-0.7); #Lymphocytes 2.4 thou/uL (1.20-3.40); #Monocytes 0.4 thou/uL (0.11-0.59); #Neutrophils 5.4 thou/uL (1.40-6.50); %Basophils 0.9 % (0.0-1.0); %Eosinophils 1.4 % (0.0-10.0); %Lymphocytes 28.2 % (21.0-51.0); %Monocytes 4.8 % (0.0-10.0); %Neutrophils 64.7 % (42.0-75.0); Hemoglobin 14.8 g/dL (12.0-16.0); Mean Corpuscular HGB CONC 33.4 g/dL (32.0-36.0); Mean Corpuscular Hemoglobin 33.4 pg (27.0-31.0); Mean Platelet Volume 10.1 fL (7.4-10.4); Platelet Count 260 thou/uL (130-400); RBC Distribution Width 12.8 % (11.5-14.5); Red Blood Cell (RBC) Count 4.43 mill/uL (4.20-5.40); White Blood Cell (WBC) Count 8.4 thou/uL (4.8-10.8)
[2020-10-22 16:14] LABS: ALT (SGPT) 184 U/L (8-55); AST (SGOT) 108 U/L (5-34); Albumin 3.9 g/dL (3.5-5.0); Alkaline Phosphatase 269 U/L (40-110); Anion Gap 16 mmol/L (10-20); BUN (Urea Nitrogen) 16 mg/dL (7.0-18.7); Bilirubin, Total 1.9 mg/dL (0.2-1.2); Calc. Creatinine Clearance 0 mL/min (70-130); Calcium 9.9 mg/dL (7.8-10.44); Carbon Dioxide 25 mmol/L (22-29); Chloride 101 mmol/L (98-107); Globulin 3.2 g/dL (2.4-3.5); Glucose 352 mg/dL (70-105); Potassium 4.4 mmol/L (3.5-5.1); Protein, Total 7.1 g/dL (6.0-8.3); Sodium 138 mmol/L (136-145)
== END 2020-10-22 17:30 | disposition home or self-care (01) ==
LOC: ERS 15:06
DX: E11.65 Type 2 diabetes mellitus with hyperglycemia (principal); I11.0 Hypertensive heart disease with heart failure; I50.9 Heart failure, unspecified; Z87.891 Personal history of nicotine dependence
CPT/HCPCS: 36415; 80053; 85025; 99284

== ENCOUNTER 2021-03-04 11:21 | Outpatient (CLI) | payer MEDICARE | END 2021-03-04 11:22 | disposition home or self-care (01) | LOC: BICMAMMO 11:21 | PROVIDERS: ATTEND Nurse Practitioner Family | DX: Z12.31 Encounter for screening mammogram for malignant neoplasm of breast (principal); Z80.3 Family history of malignant neoplasm of breast | CPT/HCPCS: 77063; 77067 ==

== ENCOUNTER 2022-04-13 08:57 | Outpatient (CLI) | payer OTHER | END 2022-04-13 08:58 | disposition home or self-care (01) | LOC: BICMAMMO 08:57 | PROVIDERS: ATTEND Family Medicine | DX: Z12.31 Encounter for screening mammogram for malignant neoplasm of breast (principal); Z80.3 Family history of malignant neoplasm of breast | CPT/HCPCS: 77063; 77067 ==

== ENCOUNTER 2022-05-15 14:40 | Inpatient (IN) | payer OTHER ==
[~2022-05-15 14:40] MED LIST changes: -Iopamidol-370 76% 500 ML 1 ML ONE; +Iopamidol-370 76% 500 ML MDV (1 ML CHARGE) ONE
[2022-05-15 15:29] LABS: #Basophils 0.1 thou/uL (0.0-0.2); #Eosinphils 0.1 thou/uL (0.0-0.7); #Lymphocytes 2.3 thou/uL (1.20-3.40); #Monocytes 0.6 thou/uL (0.11-0.59); #Neutrophils 5.2 thou/uL (1.40-6.50); %Eosinophils 1.7 % (0.0-10.0); %Lymphocytes 27.5 % (21.0-51.0); %Monocytes 6.7 % (0.0-10.0); %Neutrophils 63.1 % (42.0-75.0); Hemoglobin 13.8 g/dL (12.0-16.0); Mean Corpuscular HGB CONC 32.6 g/dL (32.0-36.0); Mean Corpuscular Hemoglobin 32.1 pg (27.0-31.0); Mean Corpuscular Volume 98.2 fl (78.0-98.0); Platelet Count 259 10x3/uL (130-400); RBC Distribution Width 13.7 % (11.5-14.5); White Blood Cell (WBC) Count 8.2 10x3/uL (4.8-10.8)
[2022-05-15 16:21] LABS: BHCG - Serum Negative (NEGATIVE); Pregs Control Background? CLEAR/WHITE (CLR/WHITE); Pregs Control Bar Appear? YES (CONTROL BAR)
[2022-05-15 16:52] LABS: Albumin 4.3 g/dL (3.5-5.0)
[2022-05-15 16:53] LABS: Chloride 99 mmol/L (98-107); Potassium 3.6 mmol/L (3.5-5.1); Sodium 137 mmol/L (136-145)
[2022-05-15 16:54] LABS: Calcium 10.2 mg/dL (7.8-10.44)
[2022-05-15 16:55] LABS: Globulin 3.8 g/dL (2.4-3.5); Glucose 135 mg/dL (70-105); Protein, Total 8.1 g/dL (6.0-8.3)
[2022-05-15 16:56] LABS: Anion Gap 21 mmol/L (10-20); Bilirubin, Total 5.2 mg/dL (0.2-1.2); Carbon Dioxide 21 mmol/L (22-29)
[2022-05-15 16:57] LABS: Alkaline Phosphatase 343 U/L (40-110)
[2022-05-15 16:58] LABS: Calc. Creatinine Clearance 0 mL/min (70-130); Estimated GFR 37
[2022-05-15 16:59] LABS: BUN (Urea Nitrogen) 17 mg/dL (7.0-18.7)
[2022-05-15 17:00] LABS: ALT (SGPT) 269 U/L (8-55); AST (SGOT) 147 U/L (5-34)
[2022-05-15 17:01] LABS: CK (CPK) 129 U/L (29-168); Lipase 77 U/L (8-78)
[2022-05-15 17:47] LABS: Bilirubin Negative (Negative); Blood, Urine Negative (Negative); Clarity Clear (Clear); Glucose, Urine (Dipstick) 500 mg/dL (Negative); Ketone, Urine Negative (Negative); Leukocyte Negative Leu/uL (Negative); Nitrite Negative (Negative); Protein, Urine (Dipstick) Negative (Neg-Trace); Specific Gravity, Urine 1.006 (1.002-1.036); Urobilinogen Normal mg/dL (Less than 2); pH, Urine 6.5 (5.0-9.0)
[2022-05-15 18:31] LABS: Lactic Acid 2.4 mmol/L (0.5-2.2)
[2022-05-15] MEDS ORDERED: Ondansetron PF 4 MG/2 ML Vial IVP PRN (19:07)
[2022-05-15] MEDS ORDERED: Dextrose 50% Abboject 50 ML SYRINGE SLOW IVP PRN (19:47)
[2022-05-15] MEDS ORDERED: Dextrose 5% in Water 1,000 ML IV PRN (19:47)
[2022-05-15] MEDS ORDERED: HumaLOG 300 UNITS/3 ML VIAL SC PRN (19:47)
[2022-05-15] MEDS ORDERED: Piperacillin/Tazobactam 3.375 GM in Sodium Chloride 0.9% 100 ML IVPB SCH (20:00)
[2022-05-15 20:10] VITALS: BMI 34.9
[2022-05-15 20:20] LABS: Hemoglobin A1c 6.4 % (4.0-6.0)
[2022-05-15] MEDS: Sodium Chloride 0.9% 1,000 ML IV SCH (21:08)
[2022-05-15] MEDS ORDERED: Piperacillin/Tazobactam 3.375 GM VIAL ONE (21:18)
[2022-05-15] MEDS: Piperacillin/Tazobactam 3.375 GM in Sodium Chloride 0.9% 100 ML IVPB SCH (23:35)
[2022-05-16 05:05] LABS: #Basophils 0.1 thou/uL (0.0-0.2); #Eosinphils 0.2 thou/uL (0.0-0.7); #Lymphocytes 2.1 thou/uL (1.20-3.40); #Monocytes 0.5 thou/uL (0.11-0.59); #Neutrophils 4.3 thou/uL (1.40-6.50); %Basophils 1.2 % (0.0-1.0); %Eosinophils 2.3 % (0.0-10.0); %Lymphocytes 28.9 % (21.0-51.0); %Monocytes 7.2 % (0.0-10.0); %Neutrophils 60.4 % (42.0-75.0); Hemoglobin 12.4 g/dL (12.0-16.0); Mean Corpuscular HGB CONC 32.8 g/dL (32.0-36.0); Mean Corpuscular Hemoglobin 32.4 pg (27.0-31.0); Mean Corpuscular Volume 98.8 fl (78.0-98.0); Mean Platelet Volume 9.6 fL (7.4-10.4); Platelet Count 219 10x3/uL (130-400); RBC Distribution Width 13.5 % (11.5-14.5); Red Blood Cell (RBC) Count 3.83 mill/uL (4.20-5.40); White Blood Cell (WBC) Count 7.1 10x3/uL (4.8-10.8)
[2022-05-16 05:23] LABS: ALT (SGPT) 212 U/L (8-55); AST (SGOT) 113 U/L (5-34); Albumin 3.7 g/dL (3.5-5.0); Alkaline Phosphatase 266 U/L (40-110); Anion Gap 13 mmol/L (10-20); BUN (Urea Nitrogen) 14 mg/dL (7.0-18.7); Bilirubin, Total 5.4 mg/dL (0.2-1.2); Calc. Creatinine Clearance 93 mL/min (70-130); Calcium 9.3 mg/dL (7.8-10.44); Carbon Dioxide 23 mmol/L (22-29); Chloride 104 mmol/L (98-107); Estimated GFR 58; Glucose 101 mg/dL (70-105); Potassium 3.2 mmol/L (3.5-5.1); Protein, Total 6.7 g/dL (6.0-8.3); Sodium 137 mmol/L (136-145)
[2022-05-16] MEDS ORDERED: Electrolyte Replacement Protocol 1 EACH FS SCH (08:15)
[2022-05-16] MEDS ORDERED: Potassium Chloride 20 MEQ TAB PO SCH (08:30)
[2022-05-16] MEDS: Piperacillin/Tazobactam 3.375 GM in Sodium Chloride 0.9% 100 ML IVPB SCH (08:59)
[2022-05-16] MEDS: Sodium Chloride 0.9% 1,000 ML IV SCH (08:59)
[2022-05-16 09:05] LABS: Magnesium 1.8 mg/dL (1.6-2.6)
[2022-05-16] MEDS ORDERED: Magnesium 2 GM/50 ML(in water) 2 GM in Premix Bag 1 BAG IVPB SCH (09:15)
[2022-05-16 20:00] VITALS: BP 138/81; TEMP 99
== END 2022-05-16 23:39 | disposition short-term general hospital (02) | DRG 436 ==
LOC: ERS 14:40 → ERHOLD 18:01 → 2SW 21:50
PROVIDERS: ADMIT Family Medicine; ATTEND Internal Medicine
DX: D01.5 Carcinoma in situ of liver, gallbladder and bile ducts (principal); E87.20 Acidosis, unspecified; N17.9 Acute kidney failure, unspecified; Z68.41 Body mass index [BMI] 40.0-44.9, adult; I13.0 Hypertensive heart and chronic kidney disease with heart failure and stage 1 through stage 4 chronic kidney disease, or unspecified chronic kidney disease; K80.71 Calculus of gallbladder and bile duct without cholecystitis with obstruction; I50.9 Heart failure, unspecified; E86.0 Dehydration; N18.2 Chronic kidney disease, stage 2 (mild); E87.6 Hypokalemia; E78.5 Hyperlipidemia, unspecified; E66.01 Morbid (severe) obesity due to excess calories; E11.22 Type 2 diabetes mellitus with diabetic chronic kidney disease; Z79.84 Long term (current) use of oral hypoglycemic drugs; Z87.891 Personal history of nicotine dependence; Z79.82 Long term (current) use of aspirin; Z79.899 Other long term (current) drug therapy; Z95.810 Presence of automatic (implantable) cardiac defibrillator
CPT/HCPCS: 36415; 36416; 71045; 71275; 74174; 80053; 81003; 82010; 82248; 82550; 83036; 83605; 83690; 83735; 83880; 84484; 84703; 85025; 87040; 93005; 96360; J2543; J3475; J3490; J7050; Q9967

== ENCOUNTER 2023-04-26 13:07 | Outpatient (CLI) | payer OTHER | END 2023-04-26 13:08 | disposition home or self-care (01) | LOC: BICMAMMO 13:07 | PROVIDERS: ATTEND Nurse Practitioner Family | DX: Z12.31 Encounter for screening mammogram for malignant neoplasm of breast (principal); Z80.3 Family history of malignant neoplasm of breast | CPT/HCPCS: 77063; 77067 ==

== ENCOUNTER 2023-11-10 10:41 | Outpatient (CLI) | payer OTHER | END 2023-11-10 10:42 | disposition home or self-care (01) | LOC: BICRAD 10:41 | PROVIDERS: ATTEND Nurse Practitioner Family | DX: M25.561 Pain in right knee (principal); M25.562 Pain in left knee ==

== ENCOUNTER 2023-12-19 06:10 | Day surgery (SDC) | payer OTHER ==
[2023-12-18 09:55] VITALS: BMI 33.7
[2023-12-19] MEDS ORDERED: PROPOFOL 40 ML ONE (06:59)
[2023-12-19] MEDS ORDERED: Lidocaine 1% PF 5 ML VIAL ONE (06:59)
[2023-12-19] MEDS ORDERED: ePHEDrine Sulfate 50 MG/10 ML VIAL ONE (07:56)
[2023-12-19] MEDS ORDERED: PHENYLEPHRINE-NS 100 MCG/ML 10 ML SYRINGE ONE (07:57)
== END 2023-12-19 09:04 | disposition home or self-care (01) ==
LOC: SDC 06:10
PROVIDERS: ATTEND Internal Medicine Gastroenterology
PROC: 0DBM8ZZ Excision of Descending Colon, Via Natural or Artificial Opening Endoscopic (ICD-10-PCS; principal; 2023-12-19)
PROC: 0DBL8ZZ Excision of Transverse Colon, Via Natural or Artificial Opening Endoscopic (ICD-10-PCS; 2023-12-19)
PROC: 0DBP8ZZ Excision of Rectum, Via Natural or Artificial Opening Endoscopic (ICD-10-PCS; 2023-12-19)
DX: Z12.11 Encounter for screening for malignant neoplasm of colon (principal); D12.3 Benign neoplasm of transverse colon; K63.5 Polyp of colon; I11.0 Hypertensive heart disease with heart failure; I50.9 Heart failure, unspecified; E11.9 Type 2 diabetes mellitus without complications; E78.5 Hyperlipidemia, unspecified; K21.9 Gastro-esophageal reflux disease without esophagitis; Z95.810 Presence of automatic (implantable) cardiac defibrillator; Z85.09 Personal history of malignant neoplasm of other digestive organs; Z87.891 Personal history of nicotine dependence; Z79.84 Long term (current) use of oral hypoglycemic drugs; Z79.899 Other long term (current) drug therapy
CPT/HCPCS: 45385; J2704; 88305

== ENCOUNTER 2024-11-17 10:59 | Emergency (ER) | payer OTHER ==
[2024-11-17 12:13] LABS: BHCG - Serum Negative (NEGATIVE); Pregs Control Background? CLEAR/WHITE (CLR/WHITE); Pregs Control Bar Appear? YES (CONTROL BAR)
[2024-11-17 12:15] LABS: Hematocrit 31.9 % (36.0-47.0); Hemoglobin 10.9 g/dL (12.0-16.0); Mean Corpuscular Hemoglobin 33.2 pg (27.0-31.0); Mean Corpuscular Volume 97.3 fL (78.0-98.0); Platelet Count 65 10x3/uL (130-400); Red Blood Cell (RBC) Count 3.28 mill/uL (4.20-5.40); White Blood Cell (WBC) Count 20.86 10x3/uL (4.8-10.8)
[2024-11-17 12:28] LABS: ALT (SGPT) 15 U/L (Less than 34); AST (SGOT) 71 U/L (11-34); Albumin 2.2 g/dL (3.1-4.5); Alkaline Phosphatase 717 U/L (40-110); Anion Gap 18 mmol/L (10-20); BUN (Urea Nitrogen) 74 mg/dL (7.0-18.7); Bilirubin, Total 0.8 mg/dL (0.3-1.2); Calc. Creatinine Clearance 0 mL/min (70-130); Calcium 8.6 mg/dL (7.8-10.44); Carbon Dioxide 16 mmol/L (22-29); Chloride 92 mmol/L (98-107); Globulin 3.5 g/dL (2.4-3.5); Glucose 129 mg/dL (70-105); Potassium 6.2 mmol/L (3.5-5.1); Sodium 120 mmol/L (136-145)
[2024-11-17 12:37] LABS: #Basophils 0.04 10x3/uL (0.0-0.2); #Eosinophils 0.05 10x3/uL (0.0-0.7); #Monocytes 1.45 10x3/uL (0.11-0.59); #Neutrophils 18.43 10x3/uL (1.40-6.50); %Basophils 0.2 % (0.0-1.0); %Eosinophils 0.3 % (0.0-10.0); %Lymphocytes 2.7 % (21.0-51.0); %Monocytes 7.0 % (0.0-10.0); %Neutrophils 89.2 % (42.0-75.0); Anisocytosis MODERATE=16-30 cells (100X) (0-5/hpf); Crenated RBC SLIGHT = 1-5 cells (100X) (None Seen); Ovalocytes MODERATE= 6-15 cells (100X) (0-1/hpf); Plasma Cells 0 % (0-0); Platelet Adequacy Comment Appears Decreased
[2024-11-17] MEDS ORDERED: Albuterol 2.5 MG (0.5 mL) NEB ONE (12:51)
[2024-11-17] MEDS ORDERED: Sodium Bicarbonate 2.5 MEQ/5 ML SDV ONE (12:51)
[2024-11-17] MEDS ORDERED: CALCIUM GLUC 1 GM/NS 50 ML IV Bag ONE ×2 (12:51→14:50)
[2024-11-17] MEDS ORDERED: Albuterol 2.5 MG (3 mL) NEB ONE (12:52)
[2024-11-17] MEDS ORDERED: Sodium Bicarb 50 MEQ/50 ML Abboject 8.4% SYRINGE ONE (12:53)
[2024-11-17] MEDS ORDERED: Vancomycin (BATCH) 1.75 GM Premix IVPB SCH (13:30)
[2024-11-17] MEDS ORDERED: Vancomycin 1 GM in Premix 1 BAG IVPB SCH (13:45)
[2024-11-17] MEDS ORDERED: Vancomycin 1 GM/200 ML (FROZEN) BAG ONE (13:55)
[2024-11-17] MEDS ORDERED: Norepinephrine 8 MG/0.9% NS 250 ML ONE (14:22)
[2024-11-17 15:30] LABS: Anion Gap 19 mmol/L (10-20); BUN (Urea Nitrogen) 70 mg/dL (7.0-18.7); Calc. Creatinine Clearance 0 mL/min (70-130); Calcium 8.5 mg/dL (7.8-10.44); Carbon Dioxide 14 mmol/L (22-29); Chloride 93 mmol/L (98-107); Glucose 144 mg/dL (70-105); Potassium 5.9 mmol/L (3.5-5.1); Sodium 120 mmol/L (136-145)
== END 2024-11-17 15:47 | disposition short-term general hospital (02) ==
LOC: ERS 10:59
DX: R06.00 Dyspnea, unspecified (principal); N17.9 Acute kidney failure, unspecified; E87.5 Hyperkalemia; E87.1 Hypo-osmolality and hyponatremia; E87.70 Fluid overload, unspecified; C78.7 Secondary malignant neoplasm of liver and intrahepatic bile duct; I11.0 Hypertensive heart disease with heart failure; I50.9 Heart failure, unspecified; E11.9 Type 2 diabetes mellitus without complications; Z55.6 Problems related to health literacy; Z87.891 Personal history of nicotine dependence; Z79.01 Long term (current) use of anticoagulants; Z79.899 Other long term (current) drug therapy
CPT/HCPCS: 71045; 80048; 80053; 83605; 83880; 84484; 84703; 85025; 85379; 87040; 87428; 93005; 94660; J0613; J2543; J3373 ×3; J7050; 36415; 87077; 87149; 96365; 96367; 96368; 96375; J7611